=== PATIENT | male | born 1985 | race Caucasian/White ===

== ENCOUNTER 2017-12-01 23:21 | Inpatient (IN) | payer OTHER ==
--- NOTE | 2017-12-02 01:01 | HP ---
COWS - Scale Resting Pulse: 1= ME 81-100 Sweatin= Beads of Sweat on Face Restless Observation: 1= Difficult to Sit Still Pupil Size: 1= Pupils >than Normal Bone or Joint Aches: 4=Acute Joint/Muscle Pain Runny Nose/ Eye Tearin= Runny Nose/Eyes GI Upset > 30mins: 2= Nausea/Diarrhea Tremor Observation: 4= Gross Tremor/Twitching Yawning Observation: 0= None Anxiety or Irritability: 0= None Goose Flesh Skin: 0=Smooth Skin COWS Score: 18 Admission LOCATED WITHIN [facility] Chief Complaint: opioid detox Allergies/Adverse Reactions: Allergies Allergy/AdvReac Type Severity Reaction Status Date / Time No Known Allergies Allergy Verified 12/02/17 01:03 History of Present Illness: Patient is a 31 years old male with a four years history of opioid dependence admitted to detox. He has been to previous detox and reports 11 months period of sobriety. He has history of Hep C and denies suicidal ideation at this time. Exam Limitations: Physical Impairment (left ankle fracture, leg cast in place) - Ebola screening Have you traveled outside of the country in the last 21 days: No (N) Have you had contact with anyone from an Ebola affected area: No Have you been sick,other than usual withdrawal symptoms: No Do you have a fever: No - Review of Systems Constitutional: Diaphoresis, Malaise, Night Sweats, Changes in sleep EENT: reports: No Symptoms Reported Respiratory: reports: No Symptoms reported Cardiac: reports: No Symptoms Reported GI: reports: Poor Appetite, Poor Fluid Intake, Abdominal cramping : reports: No Symptoms Reported Musculoskeletal: reports: Muscle Pain, Muscle Weakness, Other (left ankle fracture) Neuro: reports: Headache, Tingling, Tremors Endocrine: reports: No Symptoms Reported Hematology: reports: No Symptoms Reported Psychiatric: reports: Mood/Affect Appropiate, Orientated x3, Anxious Other Systems: Reviewed and Negative Patient History - Patient Medical History Hx Anemia: No Hx Asthma: No Hx Chronic Obstructive Pulmonary Disease (COPD): No Hx Cancer: No Hx Cardiac Disorders: No Hx Congestive Heart Failure: No Hx Hypertension: No Hx Hypercholesterolemia: No Hx Pacemaker: No HX Cerebrovascular Accident: No Hx Seizures: No Hx Dementia: No Hx Diabetes: No Hx Gastrointestinal Disorders: No Hx Liver Disease: Yes (Hep C) Hx Genitourinary Disorders: No Hx Sexually Transmitted Disorders: No Hx Renal Disease (ESRD): No Hx Human Immunodeficiency Virus (HIV): No (Negative 2016) Hx Hepatitis C: Yes Hx Depression: No Hx Suicide Attempt: No (Denies suicidal ideation) Hx Bipolar Disorder: No Hx Schizophrenia: No - Patient Surgical History Past Surgical History: Yes Hx Neurologic Surgery: No Hx Cataract Extraction: No Hx Cardiac Surgery: No Hx Lung Surgery: No Hx Abdominal Surgery: No Hx Appendectomy: No Hx Cholecystectomy: Yes (2014) Hx Genitourinary Surgery: No Hx Orthopedic Surgery: No Anesthesia Reaction: No - PPD History Previous Implant?: Yes (PPD POSITIVE) Implanted On Prior R Admission?: No PPD to be Administered?: No - Reproductive History Patient is a Female of Child Bearing Age (11 -55 yrs old): No (MALE) - Smoking Cessation Smoking history: Current every day smoker Have you smoked in the past 12 months: Yes Aproximately how many cigarettes per day: 20 Hx Chewing Tobacco Use: No Initiated information on smoking cessation: Yes 'Breaking Loose' booklet given: 12/02/17 - Substance & Tx. History Hx Alcohol Use: No Hx Substance Use: Yes Substance Use Type: Cocaine, Heroin, Opiates Hx Substance Use Treatment: Yes ([facility] 09/2017) - Substances Abused Cocaine Route: Smoking Frequency: 3-6 times per week Amount used: 1 GRAM Age of first use: 15 Date of Last Use: 11/25/17 Heroin Route: Injection Frequency: Daily Amount used: 10 BAGS Age of first use: 28 Date of Last Use: 12/02/17 Family Disease History - Family Disease History Family History: Denies Admission Physical Exam [facility] - Physical General Appearance: Yes: Moderate Distress HEENTM: Yes: EOMI, Normal Voice, ZACH Respiratory: Yes: Lungs Clear, Normal Breath Sounds, No Respiratory Distress Neck: Yes: Supple, Trachea in good position Breast: Yes: Breast Exam Deferred Cardiology: Yes: Regular Rhythm, Regular Rate, S1, S2 Abdominal: Yes: Normal Bowel Sounds, Soft Genitourinary: Yes: Within Normal Limits Back: Yes: Normal Inspection Musculoskeletal: Yes: Muscle Pain, Muscle weakness Extremities: Yes: Tremors, Other Neurological: Yes: Alert, Normal Response Integumentary: Yes: Dry, Diaphoresis, Track Camejo (BILATERAL HANDS) Lymphatic: Yes: Within Normal Limits - Diagnostic (1) Opioid dependence with withdrawal Current Visit: Yes Status: Chronic (2) Cocaine dependence, uncomplicated Current Visit: Yes Status: Chronic (3) Hep C w/o coma, chronic Current Visit: Yes Status: Chronic (4) Nicotine dependence Current Visit: Yes Status: Chronic Cleared for Admission [facility] - Detox or Rehab [facility] Level of Care: Medically Managed Detox Regimen/Protocol: Methadone S Breath Alcohol Content Breath Alcohol Content: 0 Vital Signs - Vital Signs Vital Signs Refused: No Temperature: 97.6 F Temperature Source: Oral Pulse Rate: 91 Respiratory Rate: 17 Blood Pressure: 117/68 BP Location: Left Arm - Height Height: 5 ft 11 in - Weight Weight: 170 lb Weight Measurement Method: Standing Scale Body Mass Index (BMI): 23.7 - Bowel Function Bowel Movement: No Urine Drug Screen - Test Device Lot Number: [id number] Expiration Date: 08/26/19 - Results Urine Drug Screen Results: NADINE-Cocaine, OPI-Opiates, OXY-Oxycodone
[2017-12-02] MEDS ORDERED: MENTHOL/PHENOL 1 EACH UD MM PRN (01:51)
[2017-12-02] MEDS ORDERED: MAGNESIUM CITRATE 300 ML BOTTLE PO PRN (01:51)
[2017-12-02] MEDS ORDERED: LOPERAMIDE HCL 2 MG CAPSULE PO PRN (01:51)
[2017-12-02] MEDS ORDERED: METHADONE HCL 10 MG TABLET (FOR DETOX USE ONLY) PO ONE ×3 (01:51→23:00)
[2017-12-02] MEDS ORDERED: MAG HYDROX/AL HYDROX/SIMETH 30 ML UNIT-DOSE CUP PO PRN (01:51)
[2017-12-02] MEDS ORDERED: MAGNESIUM HYDROX 2400MG/30ML ORAL SUSPENSION 30 ML CUP PO PRN (01:51)
[2017-12-02] MEDS ORDERED: P-EPHED 60MG/TRIPROLIDI 2.5MG TABLET PO PRN (01:51)
[2017-12-02] MEDS ORDERED: NICOTINE POLACRILEX 2 MG GUM BC PRN (01:51)
[2017-12-02] MEDS ORDERED: guaiFENesin/D-METHORPHAN HB 10 ML UNIT-DOSE CUPS PO PRN (01:51)
[2017-12-02 01:58] VITALS: BMI 23.7
[2017-12-02] MEDS: diazePAM 5 MG TABLET PO PRN ×3 (02:24→22:16)
[2017-12-02] MEDS: IBUPROFEN 400 MG TABLET (FP) PO PRN ×2 (02:24→10:58)
[2017-12-02] MEDS: PRENATAL VITAMINS W/ FOLIC ACID TABLET (FP) PO SCH (10:58)
[2017-12-02] MEDS: NICOTINE 14 MG/24 HOURS TOPICAL PATCH TD SCH (10:58)
--- NOTE | 2017-12-02 13:37 | EKG ---
Test Reason : Blood Pressure : / mmHG Vent. Rate : 075 BPM Atrial Rate : 075 BPM P-R Int : 160 ms QRS Dur : 094 ms QT Int : 374 ms P-R-T Axes : 065 072 070 degrees QTc Int : 417 ms NORMAL SINUS RHYTHM NORMAL ECG NO PREVIOUS ECGS AVAILABLE Confirmed by CONNIE LEVIN MD ([id number]) on 12/02/2017 1:37:21 PM Referred By: Confirmed By:CONNIE LEVIN MD
[2017-12-02] MEDS: ACETAMINOPHEN 325 MG TABLET (FP) PO PRN (15:46)
--- NOTE | 2017-12-02 17:28 | PN ---
[facility] Progress Note Note: Patient was admitted early this morning for detox. He is examined this morning, in bed, in no apparent distress. He has c/o pain and nausea. He is s/p left ankle fracture from a fall, cast in place. He has been instructed to use crutches for ambulation, and also to take pain medications as needed. He verbalized understanding.
[2017-12-02] MEDS: THIAMINE HCL 100 MG TABLET (FP) PO SCH (22:16)
[2017-12-03] MEDS: diazePAM 5 MG TABLET PO PRN ×3 (08:37→21:37)
[2017-12-03] MEDS: IBUPROFEN 400 MG TABLET (FP) PO PRN (08:38)
[2017-12-03] MEDS ORDERED: METHADONE HCL 10 MG TABLET (FOR DETOX USE ONLY) PO ONE (10:00)
[2017-12-03] MEDS: PRENATAL VITAMINS W/ FOLIC ACID TABLET (FP) PO SCH (10:09)
[2017-12-03] MEDS: NICOTINE 14 MG/24 HOURS TOPICAL PATCH TD SCH (10:10)
--- NOTE | 2017-12-03 14:33 | PN ---
[facility] COWS - Scale Resting Pulse: 1= [place] 81-100 Sweatin=Flushed/Facial Moisture Restless Observation: 1= Difficult to Sit Still Pupil Size: 0= Normal to Room Light Bone or Joint Aches: 2= Severe Diffuse Aches Runny Nose/ Eye Tearin= Runny Nose/Eyes GI Upset > 30mins: 1= Stomach Cramp Tremor Observation of Outstretched Hands: 2= Slight Tremor Visible Yawning Observation: 1= 1-2x During Session Anxiety or Irritability: 2=Irritable/Anxious Goose Flesh Skin: 0=Smooth Skin COWS Score: 14 BHS Progress Note (SOAP) Subjective: body aches,sweating,interrupted sleep,restless,anxiety Objective: 12/03/17 14:31 Vital Signs - 8 hr 12/03/17 09:47 Temperature 100.5 F H Pulse Rate 94 H Respiratory 16 Rate Blood Pressure 119/72 Assessment: 12/03/17 14:32 Withdrawal sx. Plan: Continue detox
[2017-12-03] MEDS: THIAMINE HCL 100 MG TABLET (FP) PO SCH (21:37)
[2017-12-03] MEDS: ACETAMINOPHEN 325 MG TABLET (FP) PO PRN (23:27)
[2017-12-04] MEDS ORDERED: hydrOXYzine PAMOATE 50 MG CAPSULE (FP) PO ONE (03:36)
[2017-12-04] MEDS: IBUPROFEN 400 MG TABLET (FP) PO PRN (03:37)
[2017-12-04] MEDS: diazePAM 5 MG TABLET PO PRN ×5 (03:37→23:03)
[2017-12-04] MEDS: ACETAMINOPHEN 325 MG TABLET (FP) PO PRN ×2 (07:28→23:50)
[2017-12-04] MEDS ORDERED: METHADONE HCL 5 MG TABLET (FOR DETOX USE ONLY) PO ONE (10:00)
[2017-12-04] MEDS: NICOTINE 14 MG/24 HOURS TOPICAL PATCH TD SCH (10:33)
[2017-12-04] MEDS: PRENATAL VITAMINS W/ FOLIC ACID TABLET (FP) PO SCH (10:33)
--- NOTE | 2017-12-04 10:38 | PN ---
[facility] COWS - Scale Resting Pulse: 1= NM 81-100 Sweatin= Chills/Flushing Restless Observation: 0= Sits Still Pupil Size: 2= Moderately Dilated Bone or Joint Aches: 4=Acute Joint/Muscle Pain Runny Nose/ Eye Tearin= Nasal Congestion GI Upset > 30mins: 0= None Tremor Observation of Outstretched Hands: 1= Tremor [place], Not Seen Yawning Observation: 1= 1-2x During Session Anxiety or Irritability: 2=Irritable/Anxious Goose Flesh Skin: 0=Smooth Skin COWS Score: 13 BHS Progress Note (SOAP) Subjective: ANXIETY,SWEATS/CHILLS,LEG PAIN. PT IS S/P FX LEFT LEG. LEFT LEG ON A WRAP - SOFT CAST. INTERMITTENT SLEEP. Objective: 12/04/17 10:38 Vital Signs Temperature 96.6 F L 12/04/17 10:00 Pulse Rate 91 H 12/04/17 10:00 Respiratory Rate 18 12/04/17 10:00 Blood Pressure 132/64 12/04/17 10:00 O2 Sat by Pulse Oximetry (%) LABS PENDING Assessment: 12/04/17 10:38 WITHDRAWAL SX Plan: CONTINUE DETOX MOTRIN 600 MG PO DIRECTED FLEXERIL DIRECTED.
[2017-12-04] MEDS: CYCLOBENZAPRINE HCL 10 MG TABLET (FP) PO SCH ×2 (14:43→22:27)
[2017-12-04 15:20] LABS: BASO % 0.7 % (0-2.0); EOS % 2.4 % (0-4.5); HEMATOCRIT 43.9 % (35.4-49); HEMOGLOBIN 14.5 GM/dL (11.7-16.9); LYMPH % 28.7 % (8-40); MCH 30.1 pg (25.7-33.7); MCHC 33.1 g/dl (32.0-35.9); MEAN CELL VOLUME 91.1 fl (80-96); MEAN PLT VOLUME 8.8 fl (7.5-11.1); MONO % 11.4 % (3.8-10.2); NEUT % 56.8 % (42.8-82.8); PLATELET COUNT 307 K/MM3 (134-434); RBC 4.82 M/mm3 (4.00-5.60); RDW 15.1 % (11.9-15.9); WHITE BLOOD COUNT 9.3 K/mm3 (4.0-10.0)
[2017-12-04 15:23] LABS: CHLORIDE 105 mmol/L (98-107); POTASSIUM 4.9 mmol/L (3.5-5.1); SODIUM 139 mmol/L (136-145)
[2017-12-04 15:31] LABS: ALK PHOS 90 U/L (45-117); ANION GAP 9 (8-16); BILIRUBIN,TOTAL 0.3 mg/dL (0.2-1.0); BLOOD UREA NITROGEN 9 mg/dL (7-18); CALCIUM 9.6 mg/dL (8.5-10.1); CO2 25 mmol/L (21-32); CREATININE 0.9 mg/dL (0.7-1.3); GLUCOSE,RANDOM 93 mg/dL (74-106); SGOT/AST 15 U/L (15-37); SGPT/ALT 23 U/L (12-78)
--- NOTE | 2017-12-04 16:14 | CONSULT ---
[facility] Psychiatric Consult - Data Date of interview: 12/04/17 Admission source: [facility] Identifying data: First admission to [facility] for this [place]-born male seeking detox treatment on for heroin dependence.Patient is single without children,domiciled (lives with his mother),unemployed and supported by relatives. Substance Abuse History: Confirmed by patient in this interview.See details in current [facility] report : Smoking history: Current every day smoker. Have you smoked in the past 12 months: Yes. Aproximately how many cigarettes per day: 20. Hx Chewing Tobacco Use: No. Initiated information on smoking cessation: Yes. 'Breaking Loose' booklet given: 12/02/17. - Substance & Tx. History. Hx Alcohol Use: No. Hx Substance Use: Yes. Substance Use Type: Cocaine, Heroin, Opiates. Hx Substance Use Treatment: Yes ([facility] 09/2017). - Substances Abused. Cocaine. Route: Smoking. Frequency: 3-6 times per week. Amount used: 1 GRAM. Age of first use: 15. Date of Last Use: 11/25/17. Heroin. Route: Injection. Frequency: Daily. Amount used: 10 BAGS. Age of first use: 28. Date of Last Use: 12/02/17 Medical History: Consistent with hepatitis C,positive PPD (as per [facility] report), past history of cholecystectomy and recent fracture of left ankle (patient uses a pair of crutches for ambulation). Psychiatric History: No reported history of psychiatric hospitalizations.Mr Dixon indicates that he was diagnosed with MDD in the past and treated with wellbutrin + ambien until 2004 (dropped out of psychiatric follow up).Used to be under the care of a private psychiatrist in [facility].It appears that," for a while ",the patient relied on various primary care physicians for medications refills.Has not taken wellbutrin for several years but has remained adherent to zolpidem (chronic insomnia).No current contact with psychiatric OPD care providers.Patient denies history of suicide attempts. 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 Additional Comment: Urine Drug Screen Results: NADINE-Cocaine, OPI-Opiates, OXY- Oxycodone.Noted. Mental Status Exam - Mental Status Exam Alert and Oriented to: Time, Place, Person Cognitive Function: Grossly Intact Patient Appearance: Unkempt, Disheveled Mood: Sad, Withdrawn, Anxious Affect: Mood Congruent, Constricted Patient Behavior: Passive, Fatigued, Appropriate, Cooperative Speech Pattern: Clear, Appropriate Voice Loudness: Normal Thought Process: Intact, Goal Oriented Thought Disorder: Not Present Hallucinations: Denies Suicidal Ideation: Denies Homicidal Ideation: Denies Insight/Judgement: Poor Sleep: Poorly (requests ambien), Difficulty falling asleep Appetite: Good Muscle strength/Tone: Normal (no complaint of rigidity or weakness of extremities) Gait/Station: Other (supine in bed ; pair of crutches at bedside) Psychiatric Findings - Problem List ([place] 1, 2,3) (1) Opioid dependence with withdrawal Current Visit: Yes Status: Acute (2) Cocaine dependence, uncomplicated Current Visit: Yes Status: Acute (3) Nicotine dependence Current Visit: Yes Status: Acute Qualifiers: Nicotine product type: cigarettes Substance use status: in withdrawal Qualified Code(s): F17.213 - Nicotine dependence, cigarettes, with withdrawal (4) Substance induced mood disorder Current Visit: Yes Status: Acute (5) Insomnia Current Visit: Yes Status: Acute - Initial Treatment Plan Initial Treatment Plan: Psychoeducation,empathy and support provided in this session.Sleep hygiene discussed.Detoxification in progress.Ambien 10 mg po hs prn.Will observe the patient without addition of an antidepressant at this time (emphasis on detoxification) since he is contemplating transition to rehabilitation after [facility] [place].Will follow.Medications reconciled : NO home medications.Fall precautions.
[2017-12-04] MEDS: IBUPROFEN 600 MG TABLET (FP) PO PRN (18:43)
[2017-12-04] MEDS: THIAMINE HCL 100 MG TABLET (FP) PO SCH (22:27)
[2017-12-04] MEDS: ZOLPIDEM TARTRATE 10 MG TABLET (PARK CARE ONLY) PO PRN (22:27)
[2017-12-05 05:12] LABS: URINE APPEARANCE CLEAR; URINE BILIRUBIN NEGATIVE (NEGATIVE); URINE BLOOD NEGATIVE (NEGATIVE); URINE COLOR LTYELLOW; URINE GLUCOSE (UA) NEGATIVE (NEGATIVE); URINE KETONE NEGATIVE (NEGATIVE); URINE LEUK ESTERASE NEGATIVE (NEGATIVE); URINE NITRITE NEGATIVE (NEGATIVE); URINE PROTEIN NEGATIVE (NEGATIVE); URINE UROBILINOGEN NEGATIVE mg/dL (0.2-1.0)
[2017-12-05] MEDS: CYCLOBENZAPRINE HCL 10 MG TABLET (FP) PO SCH ×3 (06:25→22:21)
[2017-12-05] MEDS: ACETAMINOPHEN 325 MG TABLET (FP) PO PRN (06:25)
[2017-12-05] MEDS: IBUPROFEN 600 MG TABLET (FP) PO PRN (09:36)
[2017-12-05] MEDS ORDERED: METHADONE HCL 5 MG TABLET (FOR DETOX USE ONLY) PO ONE (10:00)
[2017-12-05] MEDS: PRENATAL VITAMINS W/ FOLIC ACID TABLET (FP) PO SCH (10:36)
[2017-12-05] MEDS: NICOTINE 14 MG/24 HOURS TOPICAL PATCH TD SCH (10:37)
--- NOTE | 2017-12-05 10:44 | PN ---
BHS Progress Note (SOAP) Subjective: ANXIETY,SWEATS,INTERMITTENT SLEEP. Objective: 12/05/17 10:43 Vital Signs Temperature 98.1 F 12/05/17 10:10 Pulse Rate 90 12/05/17 10:10 Respiratory Rate 16 12/05/17 10:10 Blood Pressure 104/68 12/05/17 10:10 O2 Sat by Pulse Oximetry (%) Laboratory Last Values WBC 9.3 K/mm3 (4.0-10.0) 12/04/17 11:03 RBC 4.82 M/mm3 (4.00-5.60) 12/04/17 11:03 Hgb 14.5 GM/dL (11.7-16.9) 12/04/17 11:03 Hct 43.9 % (35.4-49) 12/04/17 11:03 MCV 91.1 fl (80-96) 12/04/17 11:03 MCH 30.1 pg (25.7-33.7) 12/04/17 11:03 MCHC 33.1 g/dl (32.0-35.9) 12/04/17 11:03 RDW 15.1 % (11.9-15.9) 12/04/17 11:03 Plt Count 307 K/MM3 (134-434) 12/04/17 11:03 MPV 8.8 fl (7.5-11.1) 12/04/17 11:03 Neutrophils % 56.8 % (42.8-82.8) 12/04/17 11:03 Lymphocytes % 28.7 % (8-40) 12/04/17 11:03 Monocytes % 11.4 % (3.8-10.2) H 12/04/17 11:03 Eosinophils % 2.4 % (0-4.5) 12/04/17 11:03 Basophils % 0.7 % (0-2.0) 12/04/17 11:03 Sodium 139 mmol/L (136-145) 12/04/17 11:03 Potassium 4.9 mmol/L (3.5-5.1) 12/04/17 11:03 Chloride 105 mmol/L (98-107) 12/04/17 11:03 Carbon Dioxide 25 mmol/L (21-32) 12/04/17 11:03 Anion Gap 9 (8-16) 12/04/17 11:03 BUN 9 mg/dL (7-18) 12/04/17 11:03 Creatinine 0.9 mg/dL (0.7-1.3) 12/04/17 11:03 Creat Clearance w eGFR > 60 (>60) 12/04/17 11:03 Random Glucose 93 mg/dL (74-106) 12/04/17 11:03 Calcium 9.6 mg/dL (8.5-10.1) 12/04/17 11:03 Total Bilirubin 0.3 mg/dL (0.2-1.0) 12/04/17 11:03 AST 15 U/L (15-37) 12/04/17 11:03 ALT 23 U/L (12-78) 12/04/17 11:03 Alkaline Phosphatase 90 U/L (45-117) 12/04/17 11:03 Total Protein 8.0 g/dl (6.4-8.2) 12/04/17 11:03 Albumin 4.0 g/dl (3.4-5.0) 12/04/17 11:03 Urine Color Ltyellow 12/04/17 06:30 Urine Appearance Clear 12/04/17 06:30 Urine pH 6.0 (5.0-8.0) 12/04/17 06:30 Ur Specific [place] 1.011 (1.001-1.035) 12/04/17 06:30 Urine Protein Negative (NEGATIVE) 12/04/17 06:30 Urine Glucose (UA) Negative (NEGATIVE) 12/04/17 06:30 Urine Ketones Negative (NEGATIVE) 12/04/17 06:30 Urine Blood Negative (NEGATIVE) 12/04/17 06:30 Urine Nitrite Negative (NEGATIVE) 12/04/17 06:30 Urine Bilirubin Negative (NEGATIVE) 12/04/17 06:30 Urine Urobilinogen Negative mg/dL (0.2-1.0) 12/04/17 06:30 Ur Leukocyte Esterase Negative (NEGATIVE) 12/04/17 06:30 RPR Titer Nonreactive (NONREACTIVE) 12/04/17 11:03 Assessment: 12/05/17 10:43 WITHDRAWAL SX Plan: CONTINUE DETOX
[2017-12-05] MEDS: THIAMINE HCL 100 MG TABLET (FP) PO SCH (22:21)
[2017-12-05] MEDS: ZOLPIDEM TARTRATE 10 MG TABLET (PARK CARE ONLY) PO PRN (22:21)
[2017-12-06] MEDS: IBUPROFEN 600 MG TABLET (FP) PO PRN ×2 (01:00→09:31)
[2017-12-06] MEDS: ACETAMINOPHEN 325 MG TABLET (FP) PO PRN (06:05)
[2017-12-06] MEDS: CYCLOBENZAPRINE HCL 10 MG TABLET (FP) PO SCH ×3 (06:05→22:28)
[2017-12-06] MEDS ORDERED: METHADONE HCL 10 MG TABLET (FOR DETOX USE ONLY) PO ONE (10:00)
[2017-12-06] MEDS: NICOTINE 14 MG/24 HOURS TOPICAL PATCH TD SCH (10:30)
[2017-12-06] MEDS: PRENATAL VITAMINS W/ FOLIC ACID TABLET (FP) PO SCH (10:31)
--- NOTE | 2017-12-06 12:36 | PN ---
BHS Progress Note (SOAP) Subjective: BODY ACHES,SWEATS, ANXIETY,INTERMITTENT SLEEP. Objective: 12/06/17 12:35 Vital Signs Temperature 97.8 F 12/06/17 10:09 Pulse Rate 83 12/06/17 10:09 Respiratory Rate 16 12/06/17 10:09 Blood Pressure 112/69 12/06/17 10:09 O2 Sat by Pulse Oximetry (%) Laboratory Last Values WBC 9.3 K/mm3 (4.0-10.0) 12/04/17 11:03 RBC 4.82 M/mm3 (4.00-5.60) 12/04/17 11:03 Hgb 14.5 GM/dL (11.7-16.9) 12/04/17 11:03 Hct 43.9 % (35.4-49) 12/04/17 11:03 MCV 91.1 fl (80-96) 12/04/17 11:03 MCH 30.1 pg (25.7-33.7) 12/04/17 11:03 MCHC 33.1 g/dl (32.0-35.9) 12/04/17 11:03 RDW 15.1 % (11.9-15.9) 12/04/17 11:03 Plt Count 307 K/MM3 (134-434) 12/04/17 11:03 MPV 8.8 fl (7.5-11.1) 12/04/17 11:03 Neutrophils % 56.8 % (42.8-82.8) 12/04/17 11:03 Lymphocytes % 28.7 % (8-40) 12/04/17 11:03 Monocytes % 11.4 % (3.8-10.2) H 12/04/17 11:03 Eosinophils % 2.4 % (0-4.5) 12/04/17 11:03 Basophils % 0.7 % (0-2.0) 12/04/17 11:03 Sodium 139 mmol/L (136-145) 12/04/17 11:03 Potassium 4.9 mmol/L (3.5-5.1) 12/04/17 11:03 Chloride 105 mmol/L (98-107) 12/04/17 11:03 Carbon Dioxide 25 mmol/L (21-32) 12/04/17 11:03 Anion Gap 9 (8-16) 12/04/17 11:03 BUN 9 mg/dL (7-18) 12/04/17 11:03 Creatinine 0.9 mg/dL (0.7-1.3) 12/04/17 11:03 Creat Clearance w eGFR > 60 (>60) 12/04/17 11:03 Random Glucose 93 mg/dL (74-106) 12/04/17 11:03 Calcium 9.6 mg/dL (8.5-10.1) 12/04/17 11:03 Total Bilirubin 0.3 mg/dL (0.2-1.0) 12/04/17 11:03 AST 15 U/L (15-37) 12/04/17 11:03 ALT 23 U/L (12-78) 12/04/17 11:03 Alkaline Phosphatase 90 U/L (45-117) 12/04/17 11:03 Total Protein 8.0 g/dl (6.4-8.2) 12/04/17 11:03 Albumin 4.0 g/dl (3.4-5.0) 12/04/17 11:03 Urine Color Ltyellow 12/04/17 06:30 Urine Appearance Clear 12/04/17 06:30 Urine pH 6.0 (5.0-8.0) 12/04/17 06:30 Ur Specific [place] 1.011 (1.001-1.035) 12/04/17 06:30 Urine Protein Negative (NEGATIVE) 12/04/17 06:30 Urine Glucose (UA) Negative (NEGATIVE) 12/04/17 06:30 Urine Ketones Negative (NEGATIVE) 12/04/17 06:30 Urine Blood Negative (NEGATIVE) 12/04/17 06:30 Urine Nitrite Negative (NEGATIVE) 12/04/17 06:30 Urine Bilirubin Negative (NEGATIVE) 12/04/17 06:30 Urine Urobilinogen Negative mg/dL (0.2-1.0) 12/04/17 06:30 Ur Leukocyte Esterase Negative (NEGATIVE) 12/04/17 06:30 RPR Titer Nonreactive (NONREACTIVE) 12/04/17 11:03 Assessment: 12/06/17 12:36 WITHDRAWAL SX Plan: CONTINUE DETOX
[2017-12-06] MEDS: THIAMINE HCL 100 MG TABLET (FP) PO SCH (22:28)
[2017-12-06] MEDS: ZOLPIDEM TARTRATE 10 MG TABLET (PARK CARE ONLY) PO PRN (22:28)
[2017-12-07] MEDS: IBUPROFEN 600 MG TABLET (FP) PO PRN (03:41)
[2017-12-07] MEDS ORDERED: METHADONE HCL 5 MG TABLET (FOR DETOX USE ONLY) PO ONE ×2 (06:00→08:52)
[2017-12-07] MEDS: CYCLOBENZAPRINE HCL 10 MG TABLET (FP) PO SCH (06:48)
[2017-12-07 09:29] VITALS: BP 104/70; PULSE 88; TEMP 96.3
--- NOTE | 2017-12-07 11:20 | DS ---
[facility] Detox Discharge Summary Admission Date: 12/02/17 Discharge Date: 12/07/17 - History Present History: Cocaine Dependence, Opioid Dependence Additional Comments: DETOX COMPLETED.ALERT O X 3. NAD. PT IS GOING TO FOLLOW UP WITH ORTHOPEDIC APPOINTMENT TODAY FOR HIS LEFT LEG. PT INSTRUCTED BY COUNSELOR CARMITA TO CALL FOR AFTERCARE BED AFTER MEDICAL NEEDS/ORTHO IS CLEARED AND HE IS READY FOR REHAB. Pertinent Past History: LEFT ANKLE FRACTURE-USE OF CRUTCHES HEP C - Physical Exam Results Vital Signs: Vital Signs Temperature 96.3 F L 12/07/17 09:27 Pulse Rate 88 12/07/17 09:27 Respiratory Rate 18 12/07/17 09:27 Blood Pressure 104/70 12/07/17 09:27 O2 Sat by Pulse Oximetry (%) Pertinent Admission Physical Exam Findings: WITHDRAWAL SX Laboratory Last Values WBC 9.3 K/mm3 (4.0-10.0) 12/04/17 11:03 RBC 4.82 M/mm3 (4.00-5.60) 12/04/17 11:03 Hgb 14.5 GM/dL (11.7-16.9) 12/04/17 11:03 Hct 43.9 % (35.4-49) 12/04/17 11:03 MCV 91.1 fl (80-96) 12/04/17 11:03 MCH 30.1 pg (25.7-33.7) 12/04/17 11:03 MCHC 33.1 g/dl (32.0-35.9) 12/04/17 11:03 RDW 15.1 % (11.9-15.9) 12/04/17 11:03 Plt Count 307 K/MM3 (134-434) 12/04/17 11:03 MPV 8.8 fl (7.5-11.1) 12/04/17 11:03 Neutrophils % 56.8 % (42.8-82.8) 12/04/17 11:03 Lymphocytes % 28.7 % (8-40) 12/04/17 11:03 Monocytes % 11.4 % (3.8-10.2) H 12/04/17 11:03 Eosinophils % 2.4 % (0-4.5) 12/04/17 11:03 Basophils % 0.7 % (0-2.0) 12/04/17 11:03 Sodium 139 mmol/L (136-145) 12/04/17 11:03 Potassium 4.9 mmol/L (3.5-5.1) 12/04/17 11:03 Chloride 105 mmol/L (98-107) 12/04/17 11:03 Carbon Dioxide 25 mmol/L (21-32) 12/04/17 11:03 Anion Gap 9 (8-16) 12/04/17 11:03 BUN 9 mg/dL (7-18) 12/04/17 11:03 Creatinine 0.9 mg/dL (0.7-1.3) 12/04/17 11:03 Creat Clearance w eGFR > 60 (>60) 12/04/17 11:03 Random Glucose 93 mg/dL (74-106) 12/04/17 11:03 Calcium 9.6 mg/dL (8.5-10.1) 12/04/17 11:03 Total Bilirubin 0.3 mg/dL (0.2-1.0) 12/04/17 11:03 AST 15 U/L (15-37) 12/04/17 11:03 ALT 23 U/L (12-78) 12/04/17 11:03 Alkaline Phosphatase 90 U/L (45-117) 12/04/17 11:03 Total Protein 8.0 g/dl (6.4-8.2) 12/04/17 11:03 Albumin 4.0 g/dl (3.4-5.0) 12/04/17 11:03 Urine Color Ltyellow 12/04/17 06:30 Urine Appearance Clear 12/04/17 06:30 Urine pH 6.0 (5.0-8.0) 12/04/17 06:30 Ur Specific [place] 1.011 (1.001-1.035) 12/04/17 06:30 Urine Protein Negative (NEGATIVE) 12/04/17 06:30 Urine Glucose (UA) Negative (NEGATIVE) 12/04/17 06:30 Urine Ketones Negative (NEGATIVE) 12/04/17 06:30 Urine Blood Negative (NEGATIVE) 12/04/17 06:30 Urine Nitrite Negative (NEGATIVE) 12/04/17 06:30 Urine Bilirubin Negative (NEGATIVE) 12/04/17 06:30 Urine Urobilinogen Negative mg/dL (0.2-1.0) 12/04/17 06:30 Ur Leukocyte Esterase Negative (NEGATIVE) 12/04/17 06:30 RPR Titer Nonreactive (NONREACTIVE) 12/04/17 11:03 - Treatment Hospital Course: Detox Protocol Followed, Detoxed Safely, Responded well, Discharged Condition Good - Medication Discharge Medications: Ambulatory Orders NK [No Known Home Medication] 12/02/17 - Diagnosis (1) Cocaine dependence, uncomplicated Current Visit: Yes Status: Acute (2) Hep C w/o coma, chronic Current Visit: Yes Status: Chronic (3) Nicotine dependence Current Visit: Yes Status: Acute Qualifiers: Nicotine product type: cigarettes Substance use status: in withdrawal Qualified Code(s): F17.213 - Nicotine dependence, cigarettes, with withdrawal (4) Opioid dependence with withdrawal Current Visit: Yes Status: Acute (5) History of fracture of left ankle Current Visit: Yes Status: Acute (6) Uses crutches Current Visit: Yes Status: Acute - AMA Did Patient Leave Against Medical Advice: No
== END 2017-12-07 10:03 | disposition home or self-care (01) | DRG 773 ==
LOC: YASAS 23:21 → Y3N 12-02 01:06
PROVIDERS: ADMIT Internal Medicine; ATTEND Internal Medicine
PROC: HZ2ZZZZ Detoxification Services for Substance Abuse Treatment (ICD-10-PCS; principal; 2017-12-02)
DX: F11.23 Opioid dependence with withdrawal (principal); F14.20 Cocaine dependence, uncomplicated; F17.213 Nicotine dependence, cigarettes, with withdrawal; F19.24 Other psychoactive substance dependence with psychoactive substance-induced mood disorder; B18.2 Chronic viral hepatitis C; G47.00 Insomnia, unspecified; Z87.81 Personal history of (healed) traumatic fracture; Z99.89 Dependence on other enabling machines and devices
CPT/HCPCS: 36415; 71046-TC; 80053; 81003; 85025; 86593; 93005; 93010

== ENCOUNTER 2017-12-23 11:34 | Inpatient (IN) | payer OTHER ==
[2017-12-23 12:21] VITALS: BMI 24.8
--- NOTE | 2017-12-23 12:52 | HP ---
COWS - Scale Resting Pulse: 1= [place] 81-100 Sweatin= Chills/Flushing Restless Observation: 1= Difficult to Sit Still Pupil Size: 0= Normal to Room Light Bone or Joint Aches: 1= Mild Discomfort Runny Nose/ Eye Tearin= Runny Nose/Eyes GI Upset > 30mins: 2= Nausea/Diarrhea Tremor Observation: 1= Tremor [place], Not Seen Yawning Observation: 1= 1-2x During Session Anxiety or Irritability: 1=Feels Anxious/Irritable Goose Flesh Skin: 0=Smooth Skin COWS Score: 11 Admission ROS S - HPI Chief Complaint: I need help, I need to be here Allergies/Adverse Reactions: Allergies Allergy/AdvReac Type Severity Reaction Status Date / Time No Known Allergies Allergy Verified 12/23/17 12:21 History of Present Illness: 31 yo gentleman here for opiate detox. Patient was here 12/02 - 12/07/17 for detox. Then went to [facility] to f/u with regard to ankle fracture. He did not have surgical repair of the ankle until 12/21/17 - he relapsed shortly after leaving here on 12/07/17. He wishes rehab after detox. He showed me discharge papers from [facility] indicating he is to be nonweight bearing and to come in for f/u at [facility] on 12/27/17. He is using crutches. Was given percocet 5/325 for pain from [facility] - noted oxycodone in urine tox. He is aware he cannot be given percocet here. Exam Limitations: Clinical Condition - Ebola screening Have you traveled outside of the country in the last 21 days: No Have you had contact with anyone from an Ebola affected area: No Have you been sick,other than usual withdrawal symptoms: No Do you have a fever: No - Review of Systems Constitutional: Chills, Loss of Appetite, Night Sweats, Changes in sleep, Weakness EENT: reports: Nose Congestion Respiratory: reports: No Symptoms reported Cardiac: reports: No Symptoms Reported GI: reports: Nausea, Poor Appetite, Indigestion : reports: No Symptoms Reported Musculoskeletal: reports: Back Pain, Muscle Pain Integumentary: reports: Flushing Neuro: reports: Headache Endocrine: reports: No Symptoms Reported Hematology: reports: No Symptoms Reported Psychiatric: reports: Judgement Intact, Mood/Affect Appropiate, Orientated x3, Anxious Other Systems: Reviewed and Negative Patient History - Patient Medical History Hx Anemia: No Hx Asthma: No Hx Chronic Obstructive Pulmonary Disease (COPD): No Hx Cancer: No Hx Cardiac Disorders: No Hx Congestive Heart Failure: No Hx Hypertension: No Hx Hypercholesterolemia: No Hx Pacemaker: No HX Cerebrovascular Accident: No Hx Seizures: No Hx Dementia: No Hx Diabetes: No Hx Gastrointestinal Disorders: No Hx Liver Disease: No Hx Genitourinary Disorders: No Hx Sexually Transmitted Disorders: No Hx Renal Disease (ESRD): No Hx Human Immunodeficiency Virus (HIV): No (Negative 2016) Hx Hepatitis C: Yes (no treatement yet) Hx Depression: Yes (when young, declines psych) Hx Suicide Attempt: No Hx Bipolar Disorder: No Hx Schizophrenia: No - Patient Surgical History Past Surgical History: Yes Hx Neurologic Surgery: No Hx Cataract Extraction: No Hx Cardiac Surgery: No Hx Lung Surgery: No Hx Abdominal Surgery: No Hx Appendectomy: No Hx Cholecystectomy: Yes (2014) Hx Genitourinary Surgery: No Hx Orthopedic Surgery: Yes (left ankle ORIF 12/21/17) Anesthesia Reaction: No - PPD History Previous Implant?: Yes Documented Results: Positive w/o proof (BCG vax) Date: 12/03/17 (cxr normal) - Reproductive History Patient is a Female of Child Bearing Age (11 -55 yrs old): No (male) - Smoking Cessation Smoking history: Current every day smoker Have you smoked in the past 12 months: Yes Aproximately how many cigarettes per day: 20 Hx Chewing Tobacco Use: No Initiated information on smoking cessation: Yes 'Breaking Loose' booklet given: 12/23/17 (give on floor) - Substance & Tx. History Hx Alcohol Use: No Hx Substance Use: Yes Substance Use Type: Cocaine, Heroin Hx Substance Use Treatment: Yes - Substances Abused Heroin Route: Injection Frequency: Daily Amount used: 15 BAGS Age of first use: 28 Date of Last Use: 12/22/17 cocaine Route: Inhalation Frequency: 1-2 times per week Amount used: $50 Age of first use: 28 Date of Last Use: 12/21/17 Marijuana/Hashish Route: Smoking Frequency: 1-2 times per week Amount used: 1 joint Age of first use: 17 Date of Last Use: 12/20/17 Family Disease History - Family Disease History Family Disease History: Other: Father (living, healthy), Mother (living, healthy ), Brother (one, living, healthy) Admission Physical Exam [facility] - Vital Signs Vital Signs: Vital Signs - 24 hr 12/23/17 12:16 Temperature 97.8 F Pulse Rate 86 Respiratory 18 Rate Blood Pressure 121/78 - Physical General Appearance: Yes: Nourished, Appropriately Dressed, Moderate Distress, Sweating, Anxious HEENTM: Yes: Hearing grossly Normal, Normocephalic, Normal Voice Respiratory: Yes: Normal Breath Sounds, No Respiratory Distress Neck: Yes: No masses,lesions,Nodules Breast: Yes: Breast Exam Deferred Cardiology: Yes: Regular Rhythm, Regular Rate Abdominal: Yes: Flat Genitourinary: Yes: Within Normal Limits Back: Yes: Normal Inspection Musculoskeletal: Yes: Other (crutches to walk - non weight bearing) Extremities: Yes: Other (left below knee cast/brace/acewrap - toes pink, mobile , slight swelling) Neurological: Yes: Fully Oriented, Alert, Motor Strength 5/5, Normal Mood/Affect , Normal Response Integumentary: Yes: Normal Color, Warm, Track [place] (dorsal aspects of both hands - no abscess noted) Lymphatic: Yes: Within Normal Limits - Diagnostic (1) Opioid dependence with withdrawal Current Visit: Yes Status: Acute (2) Cocaine dependence, uncomplicated Current Visit: Yes Status: Chronic (3) History of fracture of left ankle Current Visit: Yes Status: Acute Comment: in cast - followed by [facility] - ORIF 12/21/17 (4) Nicotine dependence Current Visit: Yes Status: Acute Qualifiers: Nicotine product type: cigarettes Substance use status: in withdrawal Qualified Code(s): F17.213 - Nicotine dependence, cigarettes, with withdrawal (5) Uses crutches Current Visit: Yes Status: Acute (6) Hep C w/o coma, chronic Current Visit: Yes Status: Chronic Cleared for Admission [facility] - Detox or Rehab [facility] Level of Care: Medically Managed Detox Regimen/Protocol: Methadone [facility] Breath Alcohol Content Breath Alcohol Content: 0 Urine Drug Screen - Results Drug Screen Negative: No Urine Drug Screen Results: THC-Marijuana, NADINE-Cocaine, OPI-Opiates, OXY- Oxycodone
[2017-12-23] MEDS ORDERED: IBUPROFEN 400 MG TABLET (FP) PO PRN (12:57)
[2017-12-23] MEDS ORDERED: P-EPHED 60MG/TRIPROLIDI 2.5MG TABLET PO PRN (12:57)
[2017-12-23] MEDS ORDERED: MAGNESIUM CITRATE 300 ML BOTTLE PO PRN (12:57)
[2017-12-23] MEDS ORDERED: guaiFENesin/D-METHORPHAN HB 10 ML UNIT-DOSE CUPS PO PRN (12:57)
[2017-12-23] MEDS ORDERED: MAG HYDROX/AL HYDROX/SIMETH 30 ML UNIT-DOSE CUP PO PRN (12:57)
[2017-12-23] MEDS ORDERED: MENTHOL/PHENOL 1 EACH UD MM PRN (12:57)
[2017-12-23] MEDS ORDERED: MAGNESIUM HYDROX 2400MG/30ML ORAL SUSPENSION 30 ML CUP PO PRN (12:57)
[2017-12-23] MEDS ORDERED: LOPERAMIDE HCL 2 MG CAPSULE PO PRN (12:57)
[2017-12-23] MEDS ORDERED: METHADONE HCL 10 MG TABLET (FOR DETOX USE ONLY) PO ONE ×2 (14:30→23:00)
[2017-12-23] MEDS: diazePAM 5 MG TABLET PO PRN ×2 (14:35→20:07)
[2017-12-23] MEDS: NICOTINE 14 MG/24 HOURS TOPICAL PATCH TD SCH (14:36)
[2017-12-23] MEDS: ACETAMINOPHEN 325 MG TABLET (FP) PO PRN (14:37)
[2017-12-23 17:27] LABS: URINE APPEARANCE CLEAR; URINE BILIRUBIN NEGATIVE (NEGATIVE); URINE BLOOD NEGATIVE (NEGATIVE); URINE COLOR STRAW; URINE GLUCOSE (UA) NEGATIVE (NEGATIVE); URINE KETONE NEGATIVE (NEGATIVE); URINE LEUK ESTERASE NEGATIVE (NEGATIVE); URINE NITRITE NEGATIVE (NEGATIVE); URINE PROTEIN NEGATIVE (NEGATIVE); URINE UROBILINOGEN NEGATIVE mg/dL (0.2-1.0)
[2017-12-23] MEDS: CALCIUM CARBONATE 650 MG TABLET PO SCH ×2 (19:26→22:09)
[2017-12-23] MEDS: hydrOXYzine PAMOATE 50 MG CAPSULE (FP) PO PRN (22:09)
[2017-12-23] MEDS: THIAMINE HCL 100 MG TABLET (FP) PO SCH (22:09)
[2017-12-24] MEDS ORDERED: ERGOCALCIFEROL (VITAMIN D2) 50,000 UNIT CAPSULE (FP) PO SCH (10:00)
[2017-12-24] MEDS ORDERED: METHADONE HCL 10 MG TABLET (FOR DETOX USE ONLY) PO ONE (10:00)
[2017-12-24] MEDS: CALCIUM CARBONATE 650 MG TABLET PO SCH ×2 (10:32→22:19)
[2017-12-24] MEDS: PRENATAL VITAMINS W/ FOLIC ACID TABLET (FP) PO SCH (10:32)
[2017-12-24] MEDS: diazePAM 5 MG TABLET PO PRN ×3 (10:33→22:20)
[2017-12-24] MEDS: NICOTINE 14 MG/24 HOURS TOPICAL PATCH TD SCH (10:36)
[2017-12-24] MEDS ORDERED: METHOCARBAMOL 500 MG TABLET PO ONE (13:18)
--- NOTE | 2017-12-24 13:22 | PN ---
BHS COWS - Scale Resting Pulse: 1= [place] 81-100 Sweatin= Chills/Flushing Restless Observation: 0= Sits Still Pupil Size: 0= Normal to Room Light Bone or Joint Aches: 1= Mild Discomfort Runny Nose/ Eye Tearin= Nasal Congestion GI Upset > 30mins: 1= Stomach Cramp Tremor Observation of Outstretched Hands: 2= Slight Tremor Visible Yawning Observation: 0= None Anxiety or Irritability: 1=Feels Anxious/Irritable Goose Flesh Skin: 0=Smooth Skin COWS Score: 8 BHS Progress Note (SOAP) Subjective: joint aches irritable anxiety restlessness Objective: 12/24/17 13:24 Vital Signs Temperature 98.4 F 12/24/17 10:00 Pulse Rate 82 12/24/17 10:00 Respiratory Rate 18 12/24/17 10:00 Blood Pressure 116/64 12/24/17 10:00 O2 Sat by Pulse Oximetry (%) Laboratory Last Values Urine Color Straw 12/23/17 15:01 Urine Appearance Clear 12/23/17 15:01 Urine pH 5.0 (5.0-8.0) 12/23/17 15:01 Ur Specific [place] 1.015 (1.001-1.035) 12/23/17 15:01 Urine Protein Negative (NEGATIVE) 12/23/17 15:01 Urine Glucose (UA) Negative (NEGATIVE) 12/23/17 15:01 Urine Ketones Negative (NEGATIVE) 12/23/17 15:01 Urine Blood Negative (NEGATIVE) 12/23/17 15:01 Urine Nitrite Negative (NEGATIVE) 12/23/17 15:01 Urine Bilirubin Negative (NEGATIVE) 12/23/17 15:01 Urine Urobilinogen Negative mg/dL (0.2-1.0) 12/23/17 15:01 Ur Leukocyte Esterase Negative (NEGATIVE) 12/23/17 15:01 lab noted Assessment: 12/24/17 13:24 withdrawal sx fracture ankle elevation, ambulate with wheelchair / crutches / non weight bearing Plan: continue detox follow up with orthopedic 12/27/17
[2017-12-24] MEDS: RANITIDINE HCL 150 MG TABLET (FP) PO SCH ×2 (13:58→22:20)
[2017-12-24] MEDS: ACETAMINOPHEN 325 MG TABLET (FP) PO PRN (16:52)
[2017-12-24] MEDS: hydrOXYzine PAMOATE 50 MG CAPSULE (FP) PO PRN (20:19)
[2017-12-24] MEDS: THIAMINE HCL 100 MG TABLET (FP) PO SCH (22:19)
[2017-12-25] MEDS: diazePAM 5 MG TABLET PO PRN ×3 (08:12→19:09)
[2017-12-25] MEDS ORDERED: METHADONE HCL 5 MG TABLET (FOR DETOX USE ONLY) PO ONE (10:00)
[2017-12-25 10:12] LABS: HEMATOCRIT 41.5 % (35.4-49); HEMOGLOBIN 13.8 GM/dL (11.7-16.9); MCH 29.6 pg (25.7-33.7); MCHC 33.2 g/dl (32.0-35.9); MEAN CELL VOLUME 89.2 fl (80-96); MEAN PLT VOLUME 7.7 fl (7.5-11.1); PLATELET COUNT 345 K/MM3 (134-434); RBC 4.65 M/mm3 (4.00-5.60); WHITE BLOOD COUNT 9.8 K/mm3 (4.0-10.0)
--- NOTE | 2017-12-25 10:29 | PN ---
BHS COWS - Scale Resting Pulse: 2= [place] 101-120 Sweatin=Flushed/Facial Moisture Restless Observation: 0= Sits Still Pupil Size: 0= Normal to Room Light Bone or Joint Aches: 1= Mild Discomfort Runny Nose/ Eye Tearin= None GI Upset > 30mins: 0= None Tremor Observation of Outstretched Hands: 1= Tremor [place], Not Seen Yawning Observation: 0= None Anxiety or Irritability: 0= None Goose Flesh Skin: 0=Smooth Skin COWS Score: 6 BHS Progress Note (SOAP) Subjective: bone aches sweat irritable Objective: 12/25/17 10:30 Vital Signs Temperature 97.6 F 12/25/17 06:17 Pulse Rate 63 12/25/17 06:17 Respiratory Rate 16 12/25/17 06:17 Blood Pressure 90/53 12/25/17 06:17 O2 Sat by Pulse Oximetry (%) Laboratory Last Values WBC 9.8 K/mm3 (4.0-10.0) 12/25/17 07:30 RBC 4.65 M/mm3 (4.00-5.60) 12/25/17 07:30 Hgb 13.8 GM/dL (11.7-16.9) 12/25/17 07:30 Hct 41.5 % (35.4-49) 12/25/17 07:30 MCV 89.2 fl (80-96) 12/25/17 07:30 MCH 29.6 pg (25.7-33.7) 12/25/17 07:30 MCHC 33.2 g/dl (32.0-35.9) 12/25/17 07:30 RDW 14.0 % (11.9-15.9) 12/25/17 07:30 Plt Count 345 K/MM3 (134-434) 12/25/17 07:30 MPV 7.7 fl (7.5-11.1) D 12/25/17 07:30 Urine Color Straw 12/23/17 15:01 Urine Appearance Clear 12/23/17 15:01 Urine pH 5.0 (5.0-8.0) 12/23/17 15:01 Ur Specific [place] 1.015 (1.001-1.035) 12/23/17 15:01 Urine Protein Negative (NEGATIVE) 12/23/17 15:01 Urine Glucose (UA) Negative (NEGATIVE) 12/23/17 15:01 Urine Ketones Negative (NEGATIVE) 12/23/17 15:01 Urine Blood Negative (NEGATIVE) 12/23/17 15:01 Urine Nitrite Negative (NEGATIVE) 12/23/17 15:01 Urine Bilirubin Negative (NEGATIVE) 12/23/17 15:01 Urine Urobilinogen Negative mg/dL (0.2-1.0) 12/23/17 15:01 Ur Leukocyte Esterase Negative (NEGATIVE) 12/23/17 15:01 lab noted Assessment: 12/25/17 10:31 withdrawal sx Plan: continue detox
[2017-12-25] MEDS: ACETAMINOPHEN 325 MG TABLET (FP) PO PRN (10:34)
[2017-12-25] MEDS: PRENATAL VITAMINS W/ FOLIC ACID TABLET (FP) PO SCH (10:34)
[2017-12-25] MEDS: CALCIUM CARBONATE 650 MG TABLET PO SCH ×2 (10:34→22:03)
[2017-12-25] MEDS: RANITIDINE HCL 150 MG TABLET (FP) PO SCH ×2 (10:34→22:03)
[2017-12-25] MEDS: NICOTINE 14 MG/24 HOURS TOPICAL PATCH TD SCH (10:35)
[2017-12-25 10:41] LABS: CHLORIDE 103 mmol/L (98-107); POTASSIUM 4.4 mmol/L (3.5-5.1); SODIUM 138 mmol/L (136-145)
[2017-12-25 10:52] LABS: ALBUMIN 3.7 g/dl (3.4-5.0); ALK PHOS 91 U/L (45-117); ANION GAP 7 (8-16); BILIRUBIN,TOTAL 0.3 mg/dL (0.2-1.0); BLOOD UREA NITROGEN 16 mg/dL (7-18); CALCIUM 9.8 mg/dL (8.5-10.1); CO2 28 mmol/L (21-32); CREATININE 0.8 mg/dL (0.7-1.3); GLUCOSE,RANDOM 94 mg/dL (74-106); SGOT/AST 11 U/L (15-37); SGPT/ALT 28 U/L (12-78); TOT PROT 7.8 g/dl (6.4-8.2)
--- NOTE | 2017-12-25 13:10 | EKG ---
Test Reason : Blood Pressure : / mmHG Vent. Rate : 069 BPM Atrial Rate : 069 BPM P-R Int : 180 ms QRS Dur : 086 ms QT Int : 388 ms P-R-T Axes : 059 067 062 degrees QTc Int : 415 ms NORMAL SINUS RHYTHM NORMAL ECG WHEN COMPARED WITH ECG OF 02-DEC-2017 03:29, NO SIGNIFICANT CHANGE WAS FOUND Confirmed by KALE GÓMEZ MD ([id number]) on 12/25/2017 1:10:07 PM Referred By: Joseph Khan Confirmed By:KALE GÓMEZ MD
[2017-12-25] MEDS ORDERED: PATIENT'S OWN MEDICATION (NON-FORMULARY) (Zolpidem Tartrate [Ambien] 10 MG) PO SCH (22:00)
[2017-12-25] MEDS: ZOLPIDEM TARTRATE 10 MG TABLET (PARK CARE ONLY) PO PRN (22:03)
[2017-12-25] MEDS: THIAMINE HCL 100 MG TABLET (FP) PO SCH (22:03)
[2017-12-26] MEDS: diazePAM 5 MG TABLET PO PRN ×2 (04:55→08:55)
--- NOTE | 2017-12-26 09:34 | PN ---
BHS Progress Note (SOAP) Subjective: nausea, sweats, interrupted sleep, anxiety, tremors Objective: 12/26/17 09:33 Vital Signs - 24 hr 12/25/17 12/25/17 12/25/17 10:58 15:25 17:51 Temperature 98.2 F 98.2 F 98.6 F Pulse Rate 106 H 93 H 78 Respiratory 18 18 16 Rate Blood Pressure 124/71 102/56 97/57 12/25/17 12/26/17 12/26/17 21:51 03:30 06:25 Temperature 98.1 F 96.3 F L Pulse Rate 105 H 81 Respiratory 16 18 18 Rate Blood Pressure 96/57 104/61 Laboratory Tests 12/23/17 12/25/17 12/25/17 15:01 07:30 07:30 WBC 9.8 RBC 4.65 Hgb 13.8 Hct 41.5 MCV 89.2 MCH 29.6 MCHC 33.2 RDW 14.0 Plt Count 345 MPV 7.7 D Sodium 138 Potassium 4.4 Chloride 103 Carbon Dioxide 28 Anion Gap 7 L BUN 16 D Creatinine 0.8 Creat Clearance w eGFR > 60 Random Glucose 94 Calcium 9.8 Total Bilirubin 0.3 AST 11 L D ALT 28 D Alkaline Phosphatase 91 Total Protein 7.8 Albumin 3.7 Urine Color Straw Urine Appearance Clear Urine pH 5.0 Ur Specific [place] 1.015 Urine Protein Negative Urine Glucose (UA) Negative Urine Ketones Negative Urine Blood Negative Urine Nitrite Negative Urine Bilirubin Negative Urine Urobilinogen Negative Ur Leukocyte Esterase Negative RPR Titer 12/25/17 07:30 WBC RBC Hgb Hct MCV MCH MCHC RDW Plt Count MPV Sodium Potassium Chloride Carbon Dioxide Anion Gap BUN Creatinine Creat Clearance w eGFR Random Glucose Calcium Total Bilirubin AST ALT Alkaline Phosphatase Total Protein Albumin Urine Color Urine Appearance Urine pH Ur Specific [place] Urine Protein Urine Glucose (UA) Urine Ketones Urine Blood Urine Nitrite Urine Bilirubin Urine Urobilinogen Ur Leukocyte Esterase RPR Titer Nonreactive Assessment: 12/26/17 09:34 withdrawal sx, cotn detox, fluids, encourage ambulation
[2017-12-26] MEDS ORDERED: METHADONE HCL 5 MG TABLET (FOR DETOX USE ONLY) PO ONE (10:00)
[2017-12-26] MEDS: RANITIDINE HCL 150 MG TABLET (FP) PO SCH ×2 (10:31→22:03)
[2017-12-26] MEDS: NICOTINE 14 MG/24 HOURS TOPICAL PATCH TD SCH (10:31)
[2017-12-26] MEDS: PRENATAL VITAMINS W/ FOLIC ACID TABLET (FP) PO SCH (10:31)
[2017-12-26] MEDS: CALCIUM CARBONATE 650 MG TABLET PO SCH ×2 (10:31→22:02)
--- NOTE | 2017-12-26 10:49 | CONSULT ---
[facility] Psychiatric Consult - Data Date of interview: 12/26/17 Admission source: [facility] Identifying data: Pt. is a 31 year old male, single, w/o kids, and currently unemployed. This is one of multiple admissions for patient. Pt. admitted to for heroin, cocaine, and marijuana dependence. Substance Abuse History: Following information confirmed with Mr. Dixon: Smoking Cessation. Smoking history: Current every day smoker. Have you smoked in the past 12 months: Yes. Aproximately how many cigarettes per day: 20. Hx Chewing Tobacco Use: No. Initiated information on smoking cessation: Yes. ' Breaking Loose' booklet given: 12/23/17 (give on floor). - Substance & Tx. History. Hx Alcohol Use: No. Hx Substance Use: Yes. Substance Use Type: Cocaine, Heroin. Hx Substance Use Treatment: Yes. - Substances Abused. Heroin. Route: Injection. Frequency: Daily. Amount used: 15 BAGS. Age of first use: 28. Date of Last Use: 12/22/17. cocaine. Route: Inhalation. Frequency: 1-2 times per week. Amount used: $50. Age of first use: 28. Date of Last Use: 12/21/17. Marijuana/Hashish. Route: Smoking. Frequency: 1-2 times per week. Amount used: 1 joint. Age of first use: 17. Date of Last Use : 12/20/17 Medical History: Hep C, Left ankle ORIF 12/21/17, Cholecystectomy Psychiatric History: Pt. denies h/o psychiatric hospitalizations. 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 Pt. denies h/o suicide attempts. Physical/Sexual Abuse/Trauma History: Denies. Additional Comment: Urine Drug Screen Results: THC-Marijuana, NADINE-Cocaine, OPI- Opiates, OXY-Oxycodone Mental Status Exam - Mental Status Exam Alert and Oriented to: Time, Place, Person Cognitive Function: Good Patient Appearance: Well Groomed Mood: Hopeful Affect: Appropriate Patient Behavior: Appropriate, Cooperative Speech Pattern: Clear, Appropriate Voice Loudness: Normal Thought Process: Goal Oriented Thought Disorder: Not Present Hallucinations: Denies Suicidal Ideation: Denies Homicidal Ideation: Denies Insight/Judgement: Poor Sleep: Poorly Appetite: Fair Muscle strength/Tone: Normal (Pt ambulates using a wheel chair due to fracture to left ankle. ) Gait/Station: Other Psychiatric Findings - Problem List ([place] 1, 2,3) (1) Opioid dependence with withdrawal Current Visit: Yes Status: Acute (2) Cocaine dependence, uncomplicated Current Visit: Yes Status: Acute (3) Insomnia Current Visit: Yes Status: Acute (4) Nicotine dependence Current Visit: Yes Status: Chronic Qualifiers: Nicotine product type: cigarettes Substance use status: in withdrawal Qualified Code(s): F17.213 - Nicotine dependence, cigarettes, with withdrawal - Initial Treatment Plan Initial Treatment Plan: Psychoeducation provided. Detoxification in progress. Ambien 10mg qhs ordered. Pt. reports favorable effect from previously taking ambien. Benefits and side effects (sleep walking) discussed. Verbal consent given. Will continue to monitor.
[2017-12-26] MEDS ORDERED: diazePAM 5 MG TABLET PO ONE (13:36)
[2017-12-26] MEDS: ZOLPIDEM TARTRATE 10 MG TABLET (PARK CARE ONLY) PO PRN (22:02)
[2017-12-26] MEDS: THIAMINE HCL 100 MG TABLET (FP) PO SCH (22:03)
[2017-12-26] MEDS: ACETAMINOPHEN 325 MG TABLET (FP) PO PRN (22:03)
[2017-12-26] MEDS: hydrOXYzine PAMOATE 50 MG CAPSULE (FP) PO PRN (22:03)
[2017-12-27 06:20] VITALS: BP 128/70; PULSE 66; TEMP 98.3
--- NOTE | 2017-12-27 08:43 | DS ---
[facility] Detox Discharge Summary Admission Date: 12/23/17 Discharge Date: 12/27/17 - History Present History: Cocaine Dependence, Opioid Dependence Additional Comments: PATIENT IS STABLE FOR DISCHARGE TODAY,HAS APPOINTMENT AT [facility] TO SEE ORTHOPEDIST TODAY, TO RETURN TO REHAB ARRANGEMENT Pertinent Past History: S/P SURGERY OF LEFT ANKLE FRACTURE - Physical Exam Results Vital Signs: Vital Signs Temperature 98.3 F 12/27/17 06:20 Pulse Rate 66 12/27/17 06:20 Respiratory Rate 16 12/27/17 06:20 Blood Pressure 128/70 12/27/17 06:20 O2 Sat by Pulse Oximetry (%) Pertinent Admission Physical Exam Findings: WITHDRAWAL SYMPTOM AND SIGNS HEPATITIS C INSOMNIA NICOTINE DEPENDENCE AMBULATION WITH CRUTCHES - Treatment Hospital Course: Detox Protocol Followed, Detoxed Safely, Responded well, Discharged Condition Good, Rehab Referral Accepted Patient has Accepted a Rehab Referral to: [facility] - Medication Discharge Medications: Ambulatory Orders Calcium Carbonate - 650 mg PO BID 12/23/17 Ergocalciferol (Vitamin D2) [Vitamin D2] 100,000 unit PO DAILY 12/23/17 Zolpidem Tartrate [Ambien] 10 mg PO HS 12/25/17 - Diagnosis (1) Opioid dependence with withdrawal Current Visit: Yes Status: Acute (2) Cocaine dependence, uncomplicated Current Visit: Yes Status: Acute (3) History of fracture of left ankle Current Visit: Yes Status: Acute (4) Insomnia Current Visit: Yes Status: Acute (5) Uses crutches Current Visit: Yes Status: Acute (6) Nicotine dependence Current Visit: Yes Status: Chronic Qualifiers: Nicotine product type: cigarettes Substance use status: in withdrawal Qualified Code(s): F17.213 - Nicotine dependence, cigarettes, with withdrawal - AMA Did Patient Leave Against Medical Advice: No
[2017-12-27] MEDS ORDERED: METHADONE HCL 10 MG TABLET (FOR DETOX USE ONLY) PO ONE (10:00)
[2017-12-28] MEDS ORDERED: METHADONE HCL 5 MG TABLET (FOR DETOX USE ONLY) PO ONE (06:00)
== END 2017-12-27 09:24 | disposition home or self-care (01) | DRG 773 ==
LOC: YASAS 11:34 → Y6N 13:12
PROVIDERS: ADMIT Internal Medicine; ATTEND Internal Medicine
PROC: HZ2ZZZZ Detoxification Services for Substance Abuse Treatment (ICD-10-PCS; principal; 2017-12-23)
DX: F11.23 Opioid dependence with withdrawal (principal); F14.20 Cocaine dependence, uncomplicated; F17.213 Nicotine dependence, cigarettes, with withdrawal; F19.24 Other psychoactive substance dependence with psychoactive substance-induced mood disorder; G47.00 Insomnia, unspecified; B18.2 Chronic viral hepatitis C; R26.2 Difficulty in walking, not elsewhere classified; Z99.89 Dependence on other enabling machines and devices; S82.892D Other fracture of left lower leg, subsequent encounter for closed fracture with routine healing; X58.XXXD Exposure to other specified factors, subsequent encounter
CPT/HCPCS: 36415; 80053; 81003; 85027; 86593; 93005; 93010

== ENCOUNTER 2018-01-13 15:33 | Inpatient (IN) | payer OTHER ==
[2018-01-13 17:17] VITALS: BMI 25.7
--- NOTE | 2018-01-13 19:34 | HP ---
COWS - Scale Resting Pulse: 0= [place] 80 or Below Sweatin=Flushed/Facial Moisture Restless Observation: 3= Extraneous Movement Pupil Size: 2= Moderately Dilated Bone or Joint Aches: 2= Severe Diffuse Aches Runny Nose/ Eye Tearin= Runny Nose/Eyes GI Upset > 30mins: 3= Vomiting/Diarrhea Tremor Observation: 2= Slight Tremor Visible Yawning Observation: 2= >3x During Session Anxiety or Irritability: 2=Irritable/Anxious Goose Flesh Skin: 0=Smooth Skin COWS Score: 20 Admission ROS S - HPI Chief Complaint: i need help to stop using heroin Allergies/Adverse Reactions: Allergies Allergy/AdvReac Type Severity Reaction Status Date / Time No Known Allergies Allergy Verified 01/13/18 21:03 History of Present Illness: this 32 years old male with heroin dependence,seeking detox,withdrawal symptom, last detox 12/23/17 to [facility] hepatitis c follow up with pmd in [facility] fx of left ankle 6 weeks ago had surgery at [facility] ambulate with crutches longest period of sobriety 1 year insomnia nicotine dependence multiple admissions in detox,keep relapsing Exam Limitations: No Limitations - Ebola screening Have you traveled outside of the country in the last 21 days: No (N) Have you had contact with anyone from an Ebola affected area: No Have you been sick,other than usual withdrawal symptoms: No Do you have a fever: No - Review of Systems Constitutional: Chills, Loss of Appetite, Malaise, Night Sweats, Changes in sleep, Weakness, Unintentional Wgt. Loss EENT: reports: Tearing, Nose Congestion Respiratory: reports: No Symptoms reported Cardiac: reports: No Symptoms Reported GI: reports: Diarrhea, Nausea, Poor Appetite, Vomiting, Abdominal cramping : reports: No Symptoms Reported Musculoskeletal: reports: Back Pain, Muscle Pain, Other (fracture of left ankle 6 weeks ago surgery of left ankle 12/21/17 ambulate with crutches dvt left leg on 01/13/18 in [facility] on eliqi=uis 10 mgs po bid since 01/23/18) Integumentary: reports: Dryness Neuro: reports: No Symptoms reported, Headache, Tremors, Weakness Endocrine: reports: No Symptoms Reported Hematology: reports: No Symptoms Reported Psychiatric: reports: No Sypmtoms Reported, Judgement Intact, Mood/Affect Appropiate, Orientated x3 (insomia) Patient History - Patient Medical History Hx Anemia: No Hx Asthma: No Hx Chronic Obstructive Pulmonary Disease (COPD): No Hx Cancer: No Hx Cardiac Disorders: No Hx Congestive Heart Failure: No Hx Hypertension: No Hx Hypercholesterolemia: No Hx Pacemaker: No HX Cerebrovascular Accident: No Hx Seizures: No Hx Dementia: No Hx Diabetes: No Hx Gastrointestinal Disorders: No Hx Liver Disease: No Hx Genitourinary Disorders: No Hx Sexually Transmitted Disorders: No Hx Renal Disease (ESRD): No Hx Human Immunodeficiency Virus (HIV): No (Negative 2017last ) Hx Hepatitis C: Yes (no treatement yet) Hx Depression: Yes (when young, declines psych) Hx Suicide Attempt: No Hx Bipolar Disorder: No Hx Schizophrenia: No Other Medical History: insomnia,dvt left leg treated on 01/13/18 - Patient Surgical History Past Surgical History: Yes Hx Neurologic Surgery: No Hx Cataract Extraction: No Hx Cardiac Surgery: No Hx Lung Surgery: No Hx Abdominal Surgery: No Hx Appendectomy: No Hx Cholecystectomy: Yes (2014 [facility] in [place]) Hx Genitourinary Surgery: No Hx Orthopedic Surgery: Yes (left ankle ORIF 12/21/17) Anesthesia Reaction: No - PPD History Previous Implant?: Yes Documented Results: Positive w/proof Implanted On Prior [facility] Admission?: No Date: 12/03/17 PPD to be Administered?: No - Smoking Cessation Smoking history: Current every day smoker Have you smoked in the past 12 months: Yes Aproximately how many cigarettes per day: 20 Hx Chewing Tobacco Use: No Initiated information on smoking cessation: Yes 'Breaking Loose' booklet given: 01/13/18 - Substance & Tx. History Hx Alcohol Use: No Hx Substance Use: Yes Substance Use Type: Heroin Hx Substance Use Treatment: Yes (12/23/17 to 12/27/17 [facility]) - Substances Abused Heroin Route: Injection Frequency: Daily Amount used: 10 to 15 bags Age of first use: 29 Date of Last Use: 01/12/18 Family Disease History - Family Disease History Family Disease History: Other: Father (living, healthy), Mother (living, healthy ), Brother (one, living, healthy) Admission Physical Exam [facility] - Vital Signs Vital Signs: Vital Signs - 24 hr 01/13/18 17:15 Temperature 98.3 F Pulse Rate 64 Respiratory 16 Rate Blood Pressure 93/55 - Physical General Appearance: Yes: Moderate Distress, Tremorous, Sweating, Anxious HEENTM: Yes: Normal ENT Inspection, ZACH, Photophobia Respiratory: Yes: Lungs Clear, Normal Breath Sounds, No Respiratory Distress Neck: Yes: Within Normal Limits, Supple, Trachea in good position Breast: Yes: Within Normal Limits Cardiology: Yes: Within Normal Limits, Regular Rhythm, Regular Rate, S1, S2 Abdominal: Yes: Within Normal Limits, Normal Bowel Sounds, Flat, Soft, Surgical Scar Genitourinary: Yes: Within Normal Limits Back: Yes: Muscle Spasm Musculoskeletal: Yes: Back pain, Muscle Pain Extremities: Yes: Within Normal Limits, Normal Range of Motion, Tremors, Other ( left boot immibilization) Neurological: Yes: crocodile farmer II-XII NML intact, Fully Oriented, Alert, Motor Strength 5/5 Integumentary: Yes: Dry Lymphatic: Yes: Within Normal Limits - Diagnostic (1) Opioid dependence with withdrawal Current Visit: No Status: Acute (2) Left leg DVT Current Visit: Yes Status: Acute (3) History of BCG vaccination Current Visit: No Status: Acute (4) History of fracture of left ankle Current Visit: No Status: Acute Comment: in cast - followed by [facility] - ORIF 12/21/17 (5) Insomnia Current Visit: No Status: Acute (6) Uses crutches Current Visit: No Status: Acute (7) S/P surgical manipulation of ankle joint Current Visit: Yes Status: Acute Cleared for Admission [facility] - Detox or Rehab [facility] Level of Care: Medically Managed Detox Regimen/Protocol: Methadone [facility] Breath Alcohol Content Breath Alcohol Content: 0 Urine Drug Screen - Results Drug Screen Negative: No Urine Drug Screen Results: OPI-Opiates, MTD-Methadone
[2018-01-13] MEDS ORDERED: P-EPHED 60MG/TRIPROLIDI 2.5MG TABLET PO PRN (20:26)
[2018-01-13] MEDS ORDERED: MAG HYDROX/AL HYDROX/SIMETH 30 ML UNIT-DOSE CUP PO PRN (20:26)
[2018-01-13] MEDS ORDERED: ACETAMINOPHEN 325 MG TABLET (FP) PO PRN (20:26)
[2018-01-13] MEDS ORDERED: LOPERAMIDE HCL 2 MG CAPSULE PO PRN (20:26)
[2018-01-13] MEDS ORDERED: guaiFENesin/D-METHORPHAN HB 10 ML UNIT-DOSE CUPS PO PRN (20:26)
[2018-01-13] MEDS ORDERED: IBUPROFEN 400 MG TABLET (FP) PO PRN (20:26)
[2018-01-13] MEDS ORDERED: MAGNESIUM CITRATE 300 ML BOTTLE PO PRN (20:26)
[2018-01-13] MEDS ORDERED: MENTHOL/PHENOL 1 EACH UD MM PRN (20:26)
[2018-01-13] MEDS ORDERED: MAGNESIUM HYDROX 2400MG/30ML ORAL SUSPENSION 30 ML CUP PO PRN (20:26)
[2018-01-13] MEDS ORDERED: METHADONE HCL 10 MG TABLET (FOR DETOX USE ONLY) PO ONE ×2 (20:26→23:00)
[2018-01-13] MEDS ORDERED: APIXABAN 5 MG TABLET PO SCH (22:00)
[2018-01-13] MEDS: THIAMINE HCL 100 MG TABLET (FP) PO SCH (22:03)
[2018-01-13] MEDS: APIXABAN 5 MG TABLET PO SCH (22:03)
[2018-01-13] MEDS: diazePAM 5 MG TABLET PO PRN (22:04)
[2018-01-13] MEDS: NICOTINE 21 MG/24 HOURS TOPICAL PATCH TD SCH (22:34)
[2018-01-14 00:14] LABS: URINE APPEARANCE CLEAR; URINE BILIRUBIN NEGATIVE (NEGATIVE); URINE BLOOD NEGATIVE (NEGATIVE); URINE COLOR LTYELLOW; URINE GLUCOSE (UA) NEGATIVE (NEGATIVE); URINE KETONE NEGATIVE (NEGATIVE); URINE LEUK ESTERASE NEGATIVE (NEGATIVE); URINE NITRITE NEGATIVE (NEGATIVE); URINE PROTEIN NEGATIVE (NEGATIVE); URINE UROBILINOGEN NEGATIVE mg/dL (0.2-1.0)
[2018-01-14] MEDS ORDERED: METHADONE HCL 10 MG TABLET (FOR DETOX USE ONLY) PO ONE (10:00)
[2018-01-14] MEDS: diazePAM 5 MG TABLET PO PRN ×3 (10:05→20:07)
[2018-01-14] MEDS: APIXABAN 5 MG TABLET PO SCH ×2 (10:06→22:43)
[2018-01-14] MEDS: PRENATAL VITAMINS W/ FOLIC ACID TABLET (FP) PO SCH (10:06)
[2018-01-14] MEDS: NICOTINE 21 MG/24 HOURS TOPICAL PATCH TD SCH (10:06)
--- NOTE | 2018-01-14 11:11 | EKG ---
Test Reason : Blood Pressure : / mmHG Vent. Rate : 054 BPM Atrial Rate : 054 BPM P-R Int : 160 ms QRS Dur : 094 ms QT Int : 422 ms P-R-T Axes : 050 067 070 degrees QTc Int : 400 ms SINUS BRADYCARDIA OTHERWISE NORMAL ECG WHEN COMPARED WITH ECG OF 23-DEC-2017 14:58, NO SIGNIFICANT CHANGE WAS FOUND Confirmed by NILAM COWART MD ([id number]) on 01/14/2018 11:11:21 AM Referred By: Confirmed By:NILAM COWART MD
[2018-01-14] MEDS ORDERED: FLU VACCINE QUAD 60 MCG/0.5 ML (MDV 17-18) IM ONE (12:00)
--- NOTE | 2018-01-14 12:38 | PN ---
BHS COWS - Scale Resting Pulse: 1= [place] 81-100 Sweatin=Flushed/Facial Moisture Restless Observation: 3= Extraneous Movement Pupil Size: 1= Pupils >than Normal Bone or Joint Aches: 2= Severe Diffuse Aches Runny Nose/ Eye Tearin= Runny Nose/Eyes GI Upset > 30mins: 2= Nausea/Diarrhea Tremor Observation of Outstretched Hands: 2= Slight Tremor Visible Yawning Observation: 2= >3x During Session Anxiety or Irritability: 2=Irritable/Anxious Goose Flesh Skin: 0=Smooth Skin COWS Score: 19 S Progress Note (SOAP) Subjective: ALERT,IRRITABLE,ANXIOUS,INTERRUPTED SLEEP,TREMOR,PAIN IN THE BODY AND BACK Objective: 01/14/18 12:38 Vital Signs Temperature 97.6 F 01/14/18 09:08 Pulse Rate 62 01/14/18 09:08 Respiratory Rate 20 01/14/18 09:08 Blood Pressure 109/56 01/14/18 09:08 O2 Sat by Pulse Oximetry (%) EKG SINUS BRADYCARDIA,RATE 54/MIN NO CHEST PAIN,NO SOB,NO DIZZINESS Laboratory Last Values Urine Color Ltyellow 01/13/18 00:00 Urine Appearance Clear 01/13/18 00:00 Urine pH 6.0 (5.0-8.0) 01/13/18 00:00 Ur Specific [place] 1.013 (1.001-1.035) 01/13/18 00:00 Urine Protein Negative (NEGATIVE) 01/13/18 00:00 Urine Glucose (UA) Negative (NEGATIVE) 01/13/18 00:00 Urine Ketones Negative (NEGATIVE) 01/13/18 00:00 Urine Blood Negative (NEGATIVE) 01/13/18 00:00 Urine Nitrite Negative (NEGATIVE) 01/13/18 00:00 Urine Bilirubin Negative (NEGATIVE) 01/13/18 00:00 Urine Urobilinogen Negative mg/dL (0.2-1.0) 01/13/18 00:00 Ur Leukocyte Esterase Negative (NEGATIVE) 01/13/18 00:00 LABS PENDING Assessment: 01/14/18 12:42 WITHDRAWAL SYMPTOM Plan: CONTINUE DETOX
--- NOTE | 2018-01-14 12:51 | CONSULT ---
[facility] Psychiatric Consult - Data Date of interview: 01/14/18 Admission source: Self-referred Identifying data: Mr Dixon is a 32 years old single [place]-born male, unemployed , supported by and lives with family seeking detox treatment for heroin Substance Abuse History: Report history of heroin use. Started using heroin at age 29, consumes 10-15 bags daily. Last used on 01/12/18 Medical History: Significant for hepatitis c, PPD+ and history of dvt left leg and orthosurgery of fracture of left ankle. Smokes cigarettes 1ppd Psychiatric History: Patient reports that he was diagnosed with MDD in the past and treated with wellbutrin + ambien until 2004 (dropped out of psychiatric follow up). Claims that he used to be under the care of a private psychiatrist in [facility]. Reports being off wellbutrin for several years but has remained adherent to zolpidem (chronic insomnia). No current contact with psychiatric OPD care providers. Patient denies history of suicide attempts. Physical/Sexual Abuse/Trauma History: Denies history of emotional, physical or sexual abuse as DV relationship. Additional Comment: Reports history 3 previous midemeanor arrests Mental Status Exam - Mental Status Exam Alert and Oriented to: Time, Place Cognitive Function: Fair Patient Appearance: Well Groomed Patient Behavior: Cooperative Speech Pattern: Clear Voice Loudness: Normal Thought Process: Intact, Goal Oriented Thought Disorder: Not Present Hallucinations: Denies Suicidal Ideation: Denies Homicidal Ideation: Denies Insight/Judgement: Poor Sleep: Poorly Appetite: Fair Muscle strength/Tone: Normal Gait/Station: Normal Psychiatric Findings - Problem List ([place] 1, 2,3) (1) Substance induced mood disorder Current Visit: Yes Status: Acute (2) MDD (major depressive disorder) Current Visit: Yes Status: Ruled-out (3) Substance-induced sleep disorder Current Visit: Yes Status: Acute (4) Opioid dependence with withdrawal Current Visit: No Status: Acute (5) Cocaine dependence, uncomplicated Current Visit: No Status: Acute (6) Nicotine dependence Current Visit: No Status: Chronic Qualifiers: Nicotine product type: cigarettes Substance use status: in withdrawal Qualified Code(s): F17.213 - Nicotine dependence, cigarettes, with withdrawal (7) Left leg DVT Current Visit: Yes Status: Acute (8) History of BCG vaccination Current Visit: No Status: Chronic (9) History of fracture of left ankle Current Visit: No Status: Resolved Comment: in cast - followed by [facility] - ORIF 12/21/17 (10) Hep C w/o coma, chronic Current Visit: No Status: Chronic - Initial Treatment Plan Initial Treatment Plan: 1) Start Ambien 10 mg po HS prn for insomnia. 2) Continue inpatient detoxification
[2018-01-14] MEDS: NICOTINE POLACRILEX 2 MG GUM BC PRN (22:42)
[2018-01-14] MEDS: ZOLPIDEM TARTRATE 5 MG TABLET PO PRN (22:42)
[2018-01-14] MEDS: THIAMINE HCL 100 MG TABLET (FP) PO SCH (22:43)
[2018-01-15] MEDS: diazePAM 5 MG TABLET PO PRN ×4 (08:04→22:19)
[2018-01-15] MEDS ORDERED: METHADONE HCL 5 MG TABLET (FOR DETOX USE ONLY) PO ONE (10:00)
[2018-01-15] MEDS: PRENATAL VITAMINS W/ FOLIC ACID TABLET (FP) PO SCH (10:11)
[2018-01-15] MEDS: NICOTINE 21 MG/24 HOURS TOPICAL PATCH TD SCH (10:11)
[2018-01-15] MEDS: APIXABAN 5 MG TABLET PO SCH ×2 (10:15→22:20)
[2018-01-15 10:37] LABS: HEMOGLOBIN 13.5 GM/dL (11.7-16.9); MCH 29.4 pg (25.7-33.7); MCHC 32.9 g/dl (32.0-35.9); MEAN CELL VOLUME 89.6 fl (80-96); MEAN PLT VOLUME 8.3 fl (7.5-11.1); PLATELET COUNT 292 K/MM3 (134-434); RBC 4.58 M/mm3 (4.00-5.60); RDW 14.9 % (11.9-15.9); WHITE BLOOD COUNT 6.7 K/mm3 (4.0-10.0)
[2018-01-15 10:53] LABS: CHLORIDE 107 mmol/L (98-107); POTASSIUM 4.3 mmol/L (3.5-5.1); SODIUM 140 mmol/L (136-145)
[2018-01-15 11:17] LABS: ALBUMIN 3.9 g/dl (3.4-5.0); ALK PHOS 83 U/L (45-117); ANION GAP 8 (8-16); BILIRUBIN,TOTAL 0.5 mg/dL (0.2-1.0); BLOOD UREA NITROGEN 13 mg/dL (7-18); CALCIUM 8.9 mg/dL (8.5-10.1); CO2 25 mmol/L (21-32); CREATININE 0.9 mg/dL (0.7-1.3); GLUCOSE,RANDOM 81 mg/dL (74-106); SGOT/AST 13 U/L (15-37); SGPT/ALT 24 U/L (12-78); TOT PROT 7.2 g/dl (6.4-8.2)
--- NOTE | 2018-01-15 14:34 | PN ---
BHS COWS - Scale Resting Pulse: 1= [place] 81-100 Sweatin=Flushed/Facial Moisture Restless Observation: 0= Sits Still Pupil Size: 0= Normal to Room Light Bone or Joint Aches: 2= Severe Diffuse Aches Runny Nose/ Eye Tearin= None GI Upset > 30mins: 3= Vomiting/Diarrhea Tremor Observation of Outstretched Hands: 2= Slight Tremor Visible Yawning Observation: 2= >3x During Session Anxiety or Irritability: 2=Irritable/Anxious Goose Flesh Skin: 0=Smooth Skin COWS Score: 14 S Progress Note (SOAP) Subjective: Tremors, Sweating, Vomiting, Body Aches, Interrupted Sleep. Objective: PT. A & O X 3, OBSERVED AMBULATING ON UNIT WITH ASSISTANCE OF CRUTCHES. NO ACUTE DISTRESS. 01/15/18 14:32 Vital Signs Temperature 98.1 F 01/15/18 13:51 Pulse Rate 82 01/15/18 13:51 Respiratory Rate 20 01/15/18 13:51 Blood Pressure 112/58 01/15/18 13:51 O2 Sat by Pulse Oximetry (%) Laboratory Tests 01/13/18 01/15/18 01/15/18 00:00 08:10 08:10 WBC 6.7 D RBC 4.58 Hgb 13.5 Hct 41.0 MCV 89.6 MCH 29.4 MCHC 32.9 RDW 14.9 Plt Count 292 MPV 8.3 Sodium 140 Potassium 4.3 Chloride 107 Carbon Dioxide 25 Anion Gap 8 BUN 13 Creatinine 0.9 Creat Clearance w eGFR > 60 Random Glucose 81 Calcium 8.9 Total Bilirubin 0.5 D AST 13 L ALT 24 Alkaline Phosphatase 83 Total Protein 7.2 Albumin 3.9 Urine Color Ltyellow Urine Appearance Clear Urine pH 6.0 Ur Specific [place] 1.013 Urine Protein Negative Urine Glucose (UA) Negative Urine Ketones Negative Urine Blood Negative Urine Nitrite Negative Urine Bilirubin Negative Urine Urobilinogen Negative Ur Leukocyte Esterase Negative RPR Titer HIV 1&2 Antibody Screen HIV P24 Antigen 01/15/18 01/15/18 08:10 08:10 WBC RBC Hgb Hct MCV MCH MCHC RDW Plt Count MPV Sodium Potassium Chloride Carbon Dioxide Anion Gap BUN Creatinine Creat Clearance w eGFR Random Glucose Calcium Total Bilirubin AST ALT Alkaline Phosphatase Total Protein Albumin Urine Color Urine Appearance Urine pH Ur Specific [place] Urine Protein Urine Glucose (UA) Urine Ketones Urine Blood Urine Nitrite Urine Bilirubin Urine Urobilinogen Ur Leukocyte Esterase RPR Titer Nonreactive HIV 1&2 Antibody Screen Negative HIV P24 Antigen Negative LABS NOTED. Assessment: 01/15/18 14:33 WITHDRAWAL SYMPTOMS. Plan: CONTINUE DETOX.
[2018-01-15] MEDS: NICOTINE POLACRILEX 2 MG GUM BC PRN ×3 (17:46→22:20)
[2018-01-15] MEDS: CYCLOBENZAPRINE HCL 5 MG TABLET PO PRN (20:20)
[2018-01-15] MEDS: THIAMINE HCL 100 MG TABLET (FP) PO SCH (22:18)
[2018-01-15] MEDS: ZOLPIDEM TARTRATE 5 MG TABLET PO PRN (22:19)
[2018-01-16] MEDS: diazePAM 5 MG TABLET PO PRN ×3 (06:10→18:17)
[2018-01-16] MEDS ORDERED: METHADONE HCL 5 MG TABLET (FOR DETOX USE ONLY) PO ONE (10:00)
[2018-01-16] MEDS: PRENATAL VITAMINS W/ FOLIC ACID TABLET (FP) PO SCH (10:29)
[2018-01-16] MEDS: APIXABAN 5 MG TABLET PO SCH ×2 (10:29→22:07)
[2018-01-16] MEDS: CYCLOBENZAPRINE HCL 5 MG TABLET PO PRN ×2 (10:29→19:38)
[2018-01-16] MEDS: NICOTINE 21 MG/24 HOURS TOPICAL PATCH TD SCH (10:32)
--- NOTE | 2018-01-16 11:59 | PN ---
BHS Progress Note (SOAP) Subjective: Fatigue, Anxious, Sweating. Objective: PT. A & O X 3, OBSERVED AMBULATING ON UNIT WITH CRUTCHES. NO ACUTE DISTRESS. 01/16/18 11:58 Vital Signs Temperature 98.2 F 01/16/18 06:15 Pulse Rate 65 01/16/18 06:15 Respiratory Rate 18 01/16/18 06:15 Blood Pressure 106/63 01/16/18 06:15 O2 Sat by Pulse Oximetry (%) Laboratory Tests 01/13/18 01/15/18 01/15/18 00:00 08:10 08:10 WBC 6.7 D RBC 4.58 Hgb 13.5 Hct 41.0 MCV 89.6 MCH 29.4 MCHC 32.9 RDW 14.9 Plt Count 292 MPV 8.3 Sodium 140 Potassium 4.3 Chloride 107 Carbon Dioxide 25 Anion Gap 8 BUN 13 Creatinine 0.9 Creat Clearance w eGFR > 60 Random Glucose 81 Calcium 8.9 Total Bilirubin 0.5 D AST 13 L ALT 24 Alkaline Phosphatase 83 Total Protein 7.2 Albumin 3.9 Urine Color Ltyellow Urine Appearance Clear Urine pH 6.0 Ur Specific [place] 1.013 Urine Protein Negative Urine Glucose (UA) Negative Urine Ketones Negative Urine Blood Negative Urine Nitrite Negative Urine Bilirubin Negative Urine Urobilinogen Negative Ur Leukocyte Esterase Negative RPR Titer HIV 1&2 Antibody Screen HIV P24 Antigen 01/15/18 01/15/18 08:10 08:10 WBC RBC Hgb Hct MCV MCH MCHC RDW Plt Count MPV Sodium Potassium Chloride Carbon Dioxide Anion Gap BUN Creatinine Creat Clearance w eGFR Random Glucose Calcium Total Bilirubin AST ALT Alkaline Phosphatase Total Protein Albumin Urine Color Urine Appearance Urine pH Ur Specific [place] Urine Protein Urine Glucose (UA) Urine Ketones Urine Blood Urine Nitrite Urine Bilirubin Urine Urobilinogen Ur Leukocyte Esterase RPR Titer Nonreactive HIV 1&2 Antibody Screen Negative HIV P24 Antigen Negative LABS NOTED. Assessment: 01/16/18 11:59 WITHDRAWAL SYMPTOMS. Plan: CONTINUE DETOX. INCREASE DAILY PO FLUID INTAKE.
[2018-01-16] MEDS: NICOTINE POLACRILEX 2 MG GUM BC PRN ×2 (18:17→21:44)
[2018-01-16] MEDS: THIAMINE HCL 100 MG TABLET (FP) PO SCH (22:07)
[2018-01-16] MEDS: ZOLPIDEM TARTRATE 5 MG TABLET PO PRN (22:07)
[2018-01-17] MEDS ORDERED: METHADONE HCL 10 MG TABLET (FOR DETOX USE ONLY) PO ONE (10:00)
[2018-01-17] MEDS: APIXABAN 5 MG TABLET PO SCH ×2 (10:10→22:08)
[2018-01-17] MEDS: NICOTINE 21 MG/24 HOURS TOPICAL PATCH TD SCH (10:10)
[2018-01-17] MEDS: PRENATAL VITAMINS W/ FOLIC ACID TABLET (FP) PO SCH (10:11)
[2018-01-17] MEDS: CYCLOBENZAPRINE HCL 5 MG TABLET PO PRN ×2 (10:14→22:08)
--- NOTE | 2018-01-17 11:05 | PN ---
BHS Progress Note (SOAP) Subjective: Sweating, Fatigue, Body aches. Objective: PT. A & O X 3, OBSERVED AMBULATING ON UNIT. NO ACUTE DISTRESS. 01/17/18 11:00 Vital Signs Temperature 96.6 F L 01/17/18 09:18 Pulse Rate 69 01/17/18 09:18 Respiratory Rate 20 01/17/18 09:18 Blood Pressure 97/56 01/17/18 09:18 O2 Sat by Pulse Oximetry (%) Laboratory Tests 01/13/18 01/15/18 01/15/18 00:00 08:10 08:10 WBC 6.7 D RBC 4.58 Hgb 13.5 Hct 41.0 MCV 89.6 MCH 29.4 MCHC 32.9 RDW 14.9 Plt Count 292 MPV 8.3 Sodium 140 Potassium 4.3 Chloride 107 Carbon Dioxide 25 Anion Gap 8 BUN 13 Creatinine 0.9 Creat Clearance w eGFR > 60 Random Glucose 81 Calcium 8.9 Total Bilirubin 0.5 D AST 13 L ALT 24 Alkaline Phosphatase 83 Total Protein 7.2 Albumin 3.9 Urine Color Ltyellow Urine Appearance Clear Urine pH 6.0 Ur Specific [place] 1.013 Urine Protein Negative Urine Glucose (UA) Negative Urine Ketones Negative Urine Blood Negative Urine Nitrite Negative Urine Bilirubin Negative Urine Urobilinogen Negative Ur Leukocyte Esterase Negative RPR Titer HIV 1&2 Antibody Screen HIV P24 Antigen 01/15/18 01/15/18 08:10 08:10 WBC RBC Hgb Hct MCV MCH MCHC RDW Plt Count MPV Sodium Potassium Chloride Carbon Dioxide Anion Gap BUN Creatinine Creat Clearance w eGFR Random Glucose Calcium Total Bilirubin AST ALT Alkaline Phosphatase Total Protein Albumin Urine Color Urine Appearance Urine pH Ur Specific [place] Urine Protein Urine Glucose (UA) Urine Ketones Urine Blood Urine Nitrite Urine Bilirubin Urine Urobilinogen Ur Leukocyte Esterase RPR Titer Nonreactive HIV 1&2 Antibody Screen Negative HIV P24 Antigen Negative LABS NOTED. Assessment: 01/17/18 11:01 WITHDRAWAL SYMPTOMS. Plan: CONTINUE DETOX.
[2018-01-17] MEDS: hydrOXYzine PAMOATE 25 MG CAPSULE (FP) PO PRN ×2 (12:37→17:22)
[2018-01-17] MEDS: NICOTINE POLACRILEX 2 MG GUM BC PRN ×2 (12:37→17:22)
[2018-01-17] MEDS: THIAMINE HCL 100 MG TABLET (FP) PO SCH (22:07)
[2018-01-17] MEDS: ZOLPIDEM TARTRATE 5 MG TABLET PO PRN (22:08)
[2018-01-18] MEDS ORDERED: METHADONE HCL 5 MG TABLET (FOR DETOX USE ONLY) PO ONE (06:00)
[2018-01-18 09:09] VITALS: BP 114/57; PULSE 79; TEMP 97.1
[2018-01-19] MEDS ORDERED: APIXABAN 5 MG TABLET PO SCH (10:00)
== END 2018-01-18 09:26 | disposition home or self-care (01) | DRG 773 ==
LOC: YASAS 15:33 → Y6N 18:49 → Y3N 21:41
PROVIDERS: ADMIT Internal Medicine; ATTEND Internal Medicine
PROC: HZ2ZZZZ Detoxification Services for Substance Abuse Treatment (ICD-10-PCS; principal; 2018-01-13)
DX: F11.23 Opioid dependence with withdrawal (principal); F14.20 Cocaine dependence, uncomplicated; F17.210 Nicotine dependence, cigarettes, uncomplicated; F33.9 Major depressive disorder, recurrent, unspecified; F19.24 Other psychoactive substance dependence with psychoactive substance-induced mood disorder; G47.00 Insomnia, unspecified; I82.402 Acute embolism and thrombosis of unspecified deep veins of left lower extremity; Z99.89 Dependence on other enabling machines and devices; Z87.81 Personal history of (healed) traumatic fracture; Z92.29 Personal history of other drug therapy
CPT/HCPCS: 36415; 80053; 81003; 85027; 86593; 87389; 93005; 93010

== ENCOUNTER 2018-03-31 23:34 | Inpatient (IN) | payer OTHER ==
[2018-03-31 23:52] VITALS: BMI 24.0
--- NOTE | 2018-04-01 00:11 | HP ---
COWS - Scale Resting Pulse: 0= [place] 80 or Below Sweatin=Flushed/Facial Moisture Restless Observation: 1= Difficult to Sit Still Pupil Size: 1= Pupils >than Normal Bone or Joint Aches: 4=Acute Joint/Muscle Pain Runny Nose/ Eye Tearin= Nasal Congestion GI Upset > 30mins: 1= Stomach Cramp Tremor Observation: 2= Slight Tremor Visible Yawning Observation: 0= None Anxiety or Irritability: 2=Irritable/Anxious Goose Flesh Skin: 0=Smooth Skin COWS Score: 14 Admission [facility] Chief Complaint: SEEKING DETOX FOR C/O HEROIN DEPENDENCE AND WITHDRAWAL SX'S Allergies/Adverse Reactions: Allergies Allergy/AdvReac Type Severity Reaction Status Date / Time No Known Allergies Allergy Verified 04/01/18 00:00 History of Present Illness: 32 Y.O. MALE WITH HX/O OPIOID DEPENDENCE HERE FOR DETOX. CLIENT IS KNOWN TO THIS PROGRAM. LAST HERE A MONTH AGO. HE HAS BEEN ON A SBX MGMT LAST FILLED RX 02/26/2018 NOTED BY [facility] [employer]SULT[employer]. CLIENT REPORTS HE HAS NOT TAKEN SBX FOR THE LAST 2 WEEKS HE HAS BEEN USING HEROIN. REPORTS HE DOES NOT HAVE A PRESCRIBER FOR CONTINUAL FOLLOW UP AND IS NOW SEEKING DETOX. REPORTS LONGEST CLEAN TIIME 1 YEAR SELF SUSTAINED. PMHX: LLE DVT ON ELOQUIS, LLE ANKLE FX WITH ORTHO BOOT. DENIES PAST MENTAL HEALTH HX TO INCLUDED PAST OR PRESENT SI/HI, A/V HALLUCINATIONS. Exam Limitations: No Limitations - Ebola screening Have you traveled outside of the country in the last 21 days: No Have you had contact with anyone from an Ebola affected area: No Have you been sick,other than usual withdrawal symptoms: No - Review of Systems Constitutional: Chills, Malaise, Night Sweats, Changes in sleep EENT: reports: No Symptoms Reported Respiratory: reports: No Symptoms reported Cardiac: reports: No Symptoms Reported GI: reports: Nausea, Poor Fluid Intake, Abdominal cramping : reports: No Symptoms Reported Musculoskeletal: reports: Joint Pain Integumentary: reports: No Symptoms Reported Neuro: reports: No Symptoms reported Endocrine: reports: No Symptoms Reported Hematology: reports: Blood Clots (DVT'S ON ELOQUIS) Psychiatric: reports: Anxious, Depressed Other Systems: Reviewed and Negative Patient History - Patient Medical History Hx Anemia: No Hx Asthma: No Hx Chronic Obstructive Pulmonary Disease (COPD): No Hx Cancer: No Hx Cardiac Disorders: No Hx Congestive Heart Failure: No Hx Hypertension: No Hx Hypercholesterolemia: No Hx Pacemaker: No HX Cerebrovascular Accident: No Hx Seizures: No Hx Dementia: No Hx Diabetes: No Hx Gastrointestinal Disorders: No Hx Liver Disease: No Hx Genitourinary Disorders: No Hx Sexually Transmitted Disorders: No Hx Renal Disease (ESRD): No Hx Human Immunodeficiency Virus (HIV): No Hx Hepatitis C: Yes (no treatement yet) Hx Depression: Yes (MDD) Hx Suicide Attempt: No Hx Bipolar Disorder: No Hx Schizophrenia: No Other Medical History: LLE DVT - Patient Surgical History Past Surgical History: Yes Hx Neurologic Surgery: No Hx Cataract Extraction: No Hx Cardiac Surgery: No Hx Lung Surgery: No Hx Abdominal Surgery: No Hx Appendectomy: No Hx Cholecystectomy: Yes (2014 [facility] in [place]) Hx Genitourinary Surgery: No Hx Orthopedic Surgery: Yes (left ankle ORIF 12/21/17) Anesthesia Reaction: No - PPD History Previous Implant?: Yes Documented Results: Negative w/proof Implanted On Prior [facility] Admission?: Yes Date: 12/03/17 Results: 0MM PPD to be Administered?: No - Smoking Cessation Smoking history: Current every day smoker Have you smoked in the past 12 months: Yes Aproximately how many cigarettes per day: 20 Cigars Per Day: 0 Hx Chewing Tobacco Use: No Initiated information on smoking cessation: Yes 'Breaking Loose' booklet given: 04/01/18 - Substance & Tx. History Hx Alcohol Use: No Hx Substance Use: Yes Substance Use Type: Heroin, Marijuana Hx Substance Use Treatment: Yes ([facility]) - Substances Abused HEROIN Route: Injection Frequency: Daily Amount used: 10 BAGS Age of first use: 28 Date of Last Use: 03/31/18 THC Route: Smoking Frequency: 1-3 times last 30 days Amount used: 1 JOINT Age of first use: 12 Date of Last Use: 03/29/18 Family Disease History - Family Disease History Family History: Denies Family Disease History: Other: Father (living, healthy), Mother (living, healthy ), Brother (one, living, healthy) Admission Physical Exam BHS - Vital Signs Vital Signs: Vital Signs - 24 hr 03/31/18 23:51 Temperature 98.9 F Pulse Rate 74 Respiratory 18 Rate Blood Pressure 118/75 - Physical General Appearance: Yes: Disheveled, Mild Distress, Tremorous, Sweating, Anxious HEENTM: Yes: EOMI, Normocephalic, Normal Voice, ZACH, Pharynx Normal, Nasal Congestion Respiratory: Yes: Chest Non-Tender, Lungs Clear, Normal Breath Sounds, No Respiratory Distress, No Accessory Muscle Use Neck: Yes: No masses,lesions,Nodules, Supple, Trachea in good position Breast: Yes: Breast Exam Deferred Cardiology: Yes: Regular Rhythm, Regular Rate, S1, S2 Abdominal: Yes: Normal Bowel Sounds, Non Tender, Flat, Soft Genitourinary: Yes: Within Normal Limits Back: Yes: Normal Inspection Musculoskeletal: Yes: full range of Motion, Gait Steady, Other (LLE ORTHO BOOT) Extremities: Yes: Normal Range of Motion, Non-Tender, Tremors Neurological: Yes: Fully Oriented, Alert, Motor Strength 5/5 Integumentary: Yes: Warm, Moist Lymphatic: Yes: Within Normal Limits - Diagnostic (1) Opioid dependence with withdrawal Current Visit: Yes Status: Chronic (2) Sea-boot foot of left lower extremity Current Visit: Yes Status: Acute Qualifiers: Encounter type: sequela Qualified Code(s): T69.022S - Immersion foot, left foot, sequela (3) Substance induced mood disorder Current Visit: Yes Status: Suspected (4) Nicotine dependence Current Visit: Yes Status: Chronic Qualifiers: Nicotine product type: cigarettes Substance use status: in withdrawal Qualified Code(s): F17.213 - Nicotine dependence, cigarettes, with withdrawal (5) History of fracture of left ankle Current Visit: Yes Status: Resolved Comment: in cast - followed by [facility] - ORIF 12/21/17 (6) Left leg DVT Current Visit: Yes Status: Resolved Qualifiers: Cleared for Admission [facility] - Detox or Rehab [facility] Level of Care: Medically Managed Detox Regimen/Protocol: Methadone Claeared for Rehab Admission: No S Breath Alcohol Content Breath Alcohol Content: 0 Urine Drug Screen - Results Drug Screen Negative: No Urine Drug Screen Results: THC-Marijuana, OPI-Opiates
[2018-04-01] MEDS ORDERED: MAG HYDROX/AL HYDROX/SIMETH 30 ML UNIT-DOSE CUP PO PRN (00:15)
[2018-04-01] MEDS ORDERED: ACETAMINOPHEN 325 MG TABLET (FP) PO PRN (00:15)
[2018-04-01] MEDS ORDERED: MAGNESIUM CITRATE 300 ML BOTTLE PO PRN (00:15)
[2018-04-01] MEDS ORDERED: IBUPROFEN 400 MG TABLET (FP) PO PRN (00:15)
[2018-04-01] MEDS ORDERED: guaiFENesin/D-METHORPHAN HB 10 ML UNIT-DOSE CUPS PO PRN (00:15)
[2018-04-01] MEDS ORDERED: MENTHOL/PHENOL 1 EACH UD MM PRN (00:15)
[2018-04-01] MEDS ORDERED: hydrOXYzine PAMOATE 50 MG CAPSULE (FP) PO PRN (00:15)
[2018-04-01] MEDS ORDERED: METHADONE HCL 10 MG TABLET (FOR DETOX USE ONLY) PO ONE ×3 (00:15→23:00)
[2018-04-01] MEDS ORDERED: MAGNESIUM HYDROX 2400MG/30ML ORAL SUSPENSION 30 ML CUP PO PRN (00:15)
[2018-04-01] MEDS ORDERED: NICOTINE POLACRILEX 2 MG GUM BC PRN (00:15)
[2018-04-01] MEDS ORDERED: LOPERAMIDE HCL 2 MG CAPSULE PO PRN (00:15)
[2018-04-01] MEDS ORDERED: P-EPHED 60MG/TRIPROLIDI 2.5MG TABLET PO PRN (00:15)
[2018-04-01] MEDS: diazePAM 5 MG TABLET PO PRN ×4 (01:47→19:13)
--- NOTE | 2018-04-01 09:20 | CONSULT ---
<Todd Beaver - Last Filed: 04/01/18 09:21> [facility] Psychiatric Consult - Data Date of interview: 04/01/18 Admission source: Rashida-referred Identifying data: 32 y/o male [place] born unemployed, domiciled, seeking detox for opioid use and cannabis Substance Abuse History: Reports history of heroin and marijuana use. Refer to addiction counselor note for more information Medical History: Significant for hepatitis C, and history of BCG vaccination, DVT left leg and orthosurgery of fracture of left ankle. Smokes cigarettes 1ppd Psychiatric History: Patient reports that he was diagnosed with MDD while in [facility] and treated with wellbutrin. Throughout the years, he has received treatment on & off. Reports that he was seeing a private psychiatrist in [place]. (dropped out of psychiatric follow up) and was prescribed Wellbutrin and Ambien. Reports being off wellbutrin for several years but has remained adherent to zolpidem (chronic insomnia). Denies history of previous psychiatric hospitalization or suicidal attempt. At present, reports feeling depressed, anxious and sleeping poorly Physical/Sexual Abuse/Trauma History: Denies history of emotional, physical or sexual abuse as DV relationship. Additional Comment: Reports history 3 previous misdemeanor arrests. No probation currently <Dewayne Conrad - Last Filed: 04/01/18 14:54> Psychiatric Findings - Problem List ([place] 1, 2,3) (1) Substance induced mood disorder Current Visit: Yes Status: Acute (2) Substance-induced sleep disorder Current Visit: Yes Status: Chronic (3) Nicotine dependence Current Visit: Yes Status: Chronic Qualifiers: Nicotine product type: cigarettes Substance use status: in withdrawal Qualified Code(s): F17.213 - Nicotine dependence, cigarettes, with withdrawal (4) Opioid dependence with withdrawal Current Visit: Yes Status: Acute (5) Cocaine dependence, uncomplicated Current Visit: No Status: Acute (6) History of fracture of left ankle Current Visit: Yes Status: Chronic Comment: in cast - followed by [facility] - ORIF 12/21/17 (7) Left leg DVT Current Visit: Yes Status: Resolved Qualifiers: (8) Crutches as ambulation aid Current Visit: No Status: Chronic
[2018-04-01 09:55] LABS: ALBUMIN 3.7 g/dl (3.4-5.0); ALK PHOS 113 U/L (45-117); ANION GAP 8 (8-16); BILIRUBIN,TOTAL 0.3 mg/dL (0.2-1.0); BLOOD UREA NITROGEN 12 mg/dL (7-18); CALCIUM 8.5 mg/dL (8.5-10.1); CHLORIDE 108 mmol/L (98-107); CO2 24 mmol/L (21-32); CREATININE 0.8 mg/dL (0.7-1.3); GLUCOSE,RANDOM 98 mg/dL (74-106); POTASSIUM 4.3 mmol/L (3.5-5.1); SGOT/AST 11 U/L (15-37); SGPT/ALT 16 U/L (12-78); SODIUM 140 mmol/L (136-145)
[2018-04-01] MEDS: NICOTINE 21 MG/24 HOURS TOPICAL PATCH TD SCH (10:04)
[2018-04-01] MEDS: PRENATAL VITAMINS W/ FOLIC ACID TABLET (FP) PO SCH (10:04)
[2018-04-01] MEDS: APIXABAN 5 MG TABLET PO SCH ×2 (10:05→22:07)
[2018-04-01 10:06] LABS: HEMATOCRIT 38.4 % (35.4-49); MCH 30.6 pg (25.7-33.7); MEAN PLT VOLUME 7.9 fl (7.5-11.1); PLATELET COUNT 359 K/MM3 (134-434); RBC 4.27 M/mm3 (4.00-5.60); RDW 14.7 % (11.9-15.9); WHITE BLOOD COUNT 8.1 K/mm3 (4.0-10.0)
--- NOTE | 2018-04-01 14:06 | CONSULT ---
[facility] Psychiatric Consult - Data Date of interview: 04/01/18 Admission source: Self -referred Identifying data: 32 y/o male [place] born unemployed, single, domiciled, seeking detox for opioid use and cannabis Substance Abuse History: Reports history of heroin and marijuana use. Refer to addiction counselor note for more information Medical History: Significant for hepatitis C, and history of BCG vaccination, DVT left leg and ortho surgery of fracture of left ankle. Smokes cigarettes 1ppd. It is to note that patient removed the cast from his left ankle in the unit Psychiatric History: Psychiatric History: Patient reports that he was diagnosed with MDD while in [facility] and treated with wellbutrin. Throughout the years, he has received treatment on & off. Reports that he was seeing a private psychiatrist in [place]. (dropped out of psychiatric follow up) and was prescribed Wellbutrin and Ambien. Reports being off wellbutrin for several years but has remained adherent to zolpidem (chronic insomnia). Denies history of previous psychiatric hospitalization or suicidal attempt. At present, reports feeling depressed, anxious and sleeping poorl Physical/Sexual Abuse/Trauma History: Denies past history of abuse Additional Comment: Past history of trouble owith the law, no fci time Mental Status Exam - Mental Status Exam Alert and Oriented to: Place, Person Cognitive Function: Grossly Intact Patient Appearance: Disheveled Mood: Irritable Affect: Constricted Patient Behavior: Distractible, Cooperative Speech Pattern: Clear Voice Loudness: Normal Thought Process: Intact Thought Disorder: Not Present Hallucinations: Denies Suicidal Ideation: Denies Homicidal Ideation: Denies Insight/Judgement: Poor Sleep: Poorly Appetite: Fair Muscle strength/Tone: Normal Gait/Station: Normal (Patient was marginaly cooperative as he complians of pain and experiencing withdrawal symptoms) Psychiatric Findings - Problem List ([place] 1, 2,3) (1) Substance induced mood disorder Current Visit: Yes Status: Acute (2) Substance-induced sleep disorder Current Visit: Yes Status: Chronic (3) Nicotine dependence Current Visit: Yes Status: Chronic Qualifiers: Nicotine product type: cigarettes Substance use status: in withdrawal Qualified Code(s): F17.213 - Nicotine dependence, cigarettes, with withdrawal (4) Opioid dependence with withdrawal Current Visit: Yes Status: Acute (5) Cocaine dependence, uncomplicated Current Visit: No Status: Acute (6) History of fracture of left ankle Current Visit: Yes Status: Chronic Comment: in cast - followed by [facility] - ORIF 12/21/17 (7) Left leg DVT Current Visit: Yes Status: Resolved Qualifiers: (8) Crutches as ambulation aid Current Visit: No Status: Chronic - Initial Treatment Plan Initial Treatment Plan: Continue inpatient detox treatment
[2018-04-01] MEDS ORDERED: ONDANSETRON *ODT* 4 MG TABLET SL PRN (14:11)
--- NOTE | 2018-04-01 14:14 | PN ---
[facility] Progress Note Note: PT ADMITTED EARLIER TODAY. C/O NAUSEA/VOMITTING, DECREASED APPETITE,SWEATS/ CHILLS, BODY ACHES. ALERT O X 3. Vital Signs 04/01/18 04/01/18 04/01/18 06:39 09:34 13:19 Temperature 97.2 F L 97.8 F 98.1 F Pulse Rate 62 57 L 83 Respiratory 18 18 18 Rate Blood Pressure 102/56 98/60 97/59 Laboratory Tests 04/01/18 04/01/18 04/01/18 07:15 07:15 07:15 WBC 8.1 RBC 4.27 Hgb 13.0 D Hct 38.4 MCV 90.0 MCH 30.6 MCHC 34.0 RDW 14.7 Plt Count 359 D MPV 7.9 Sodium 140 Potassium 4.3 Chloride 108 H Carbon Dioxide 24 Anion Gap 8 BUN 12 Creatinine 0.8 D Creat Clearance w eGFR > 60 Random Glucose 98 Calcium 8.5 Total Bilirubin 0.3 AST 11 L ALT 16 D Alkaline Phosphatase 113 D Total Protein 7.0 Albumin 3.7 RPR Titer Nonreactive HIV 1&2 Antibody Screen HIV P24 Antigen 04/01/18 07:15 WBC RBC Hgb Hct MCV MCH MCHC RDW Plt Count MPV Sodium Potassium Chloride Carbon Dioxide Anion Gap BUN Creatinine Creat Clearance w eGFR Random Glucose Calcium Total Bilirubin AST ALT Alkaline Phosphatase Total Protein Albumin RPR Titer HIV 1&2 Antibody Screen Negative HIV P24 Antigen Negative LABS NOTED PLAN; CONTINUE DETOX ZOFRAN SL DIRECTED INCREASE PO FLUIDS TOLERATED
--- NOTE | 2018-04-01 14:34 | EKG ---
Test Reason : Blood Pressure : / mmHG Vent. Rate : 062 BPM Atrial Rate : 062 BPM P-R Int : 172 ms QRS Dur : 088 ms QT Int : 406 ms P-R-T Axes : 046 063 061 degrees QTc Int : 412 ms NORMAL SINUS RHYTHM WITH SINUS ARRHYTHMIA NORMAL ECG WHEN COMPARED WITH ECG OF 29-JAN-2018 21:48, NO SIGNIFICANT CHANGE WAS FOUND Confirmed by MD Fer, Quinn ([id number]) on 04/01/2018 2:34:28 PM Referred By: Joseph Khan Confirmed By:Quinn Monroe MD
--- NOTE | 2018-04-01 14:50 | HP ---
Psychiatrist Admission - Data Vital Signs: Vital Signs - 24 hr 03/31/18 04/01/18 04/01/18 23:51 01:32 03:38 Temperature 98.9 F 98.0 F Pulse Rate 74 60 Respiratory 18 18 16 Rate Blood Pressure 118/75 105/65 04/01/18 04/01/18 04/01/18 06:39 09:34 13:19 Temperature 97.2 F L 97.8 F 98.1 F Pulse Rate 62 57 L 83 Respiratory 18 18 18 Rate Blood Pressure 102/56 98/60 97/59 Allergies/Adverse Reactions: Allergies Allergy/AdvReac Type Severity Reaction Status Date / Time No Known Allergies Allergy Verified 04/01/18 00:00 Psychiatric Findings - Problem List ([place] 1, 2,3) (1) Substance induced mood disorder Current Visit: Yes Status: Acute (2) Substance-induced sleep disorder Current Visit: Yes Status: Chronic (3) Nicotine dependence Current Visit: Yes Status: Chronic Qualifiers: Nicotine product type: cigarettes Substance use status: in withdrawal Qualified Code(s): F17.213 - Nicotine dependence, cigarettes, with withdrawal (4) Opioid dependence with withdrawal Current Visit: Yes Status: Acute (5) Cocaine dependence, uncomplicated Current Visit: No Status: Acute (6) History of fracture of left ankle Current Visit: Yes Status: Chronic Comment: in cast - followed by [facility] - [facility] 12/21/17 (7) Left leg DVT Current Visit: Yes Status: Resolved Qualifiers: (8) Crutches as ambulation aid Current Visit: No Status: Chronic
[2018-04-01] MEDS ORDERED: THIAMINE HCL 100 MG TABLET (FP) PO SCH (22:00)
[2018-04-01] MEDS ORDERED: MELATONIN 5 MG TABLETS PO PRN (22:00)
[2018-04-02] MEDS: diazePAM 5 MG TABLET PO PRN (06:38)
[2018-04-02] MEDS: PRENATAL VITAMINS W/ FOLIC ACID TABLET (FP) PO SCH (09:01)
[2018-04-02] MEDS: NICOTINE 21 MG/24 HOURS TOPICAL PATCH TD SCH (09:01)
[2018-04-02 09:56] VITALS: BP 96/56; PULSE 68; TEMP 98.3
[2018-04-02] MEDS ORDERED: METHADONE HCL 10 MG TABLET (FOR DETOX USE ONLY) PO ONE (10:00)
[2018-04-02] MEDS: APIXABAN 5 MG TABLET PO SCH (10:40)
--- NOTE | 2018-04-02 12:12 | PN ---
S Progress Note (SOAP) Subjective: SAW PT TODAY AT 9:00 WHO WAS LINGERING BY THE MEDICATION WINDOW AND WANTED HIS METHADONE AND INTERMITTENT RESTLESS SLEEP AT NIGHT. BOOKSTORE CLERK DISCUSSED WITH PT MEDICATION PROTOCOLS AND MANAGEMENT OF HIS WITHDRAWAL SX. DENIES OTHER UNRELATED DISOMFORTS TO DETOX. PT SIGNED OUT AMA STATING HE WANTS TO GO AND SEE HIS DOCTOR FOR HIS DVT. PT IS ALERT O X 3. REPORTED ANXIETY AND INSOMNIA AND DISCUSSED PSYCH FOLLOW UP THIS MORNING FOR INSOMNIA WITH DR MADDEN. PT LATER DECIDED TO LEAVE, DECLINING ALL MEDICAL MANAGEMENT HERE. Objective: 04/02/18 12:08 Laboratory Tests 04/01/18 04/01/18 04/01/18 07:15 07:15 07:15 WBC 8.1 RBC 4.27 Hgb 13.0 D Hct 38.4 MCV 90.0 MCH 30.6 MCHC 34.0 RDW 14.7 Plt Count 359 D MPV 7.9 Sodium 140 Potassium 4.3 Chloride 108 H Carbon Dioxide 24 Anion Gap 8 BUN 12 Creatinine 0.8 D Creat Clearance w eGFR > 60 Random Glucose 98 Calcium 8.5 Total Bilirubin 0.3 AST 11 L ALT 16 D Alkaline Phosphatase 113 D Total Protein 7.0 Albumin 3.7 RPR Titer Nonreactive HIV 1&2 Antibody Screen HIV P24 Antigen 04/01/18 07:15 WBC RBC Hgb Hct MCV MCH MCHC RDW Plt Count MPV Sodium Potassium Chloride Carbon Dioxide Anion Gap BUN Creatinine Creat Clearance w eGFR Random Glucose Calcium Total Bilirubin AST ALT Alkaline Phosphatase Total Protein Albumin RPR Titer HIV 1&2 Antibody Screen Negative HIV P24 Antigen Negative Assessment: 04/02/18 12:08 NAD Plan: PT SIGNED OUT AMA
--- NOTE | 2018-04-02 12:15 | DS ---
[facility] Detox Discharge Summary Admission Date: 03/31/18 Discharge Date: 04/02/18 - History Present History: Cocaine Dependence, Opioid Dependence Additional Comments: PT SIGNED OUT AMA. ALERT O X 3. NAD. Pertinent Past History: PLEASE SEE DX BELOW - Physical Exam Results Vital Signs: Vital Signs Temperature 98.3 F 04/02/18 09:54 Pulse Rate 68 04/02/18 09:54 Respiratory Rate 18 04/02/18 09:54 Blood Pressure 96/56 04/02/18 09:54 O2 Sat by Pulse Oximetry (%) Pertinent Admission Physical Exam Findings: WITHDRAWAL SX Laboratory Tests 04/01/18 04/01/18 04/01/18 07:15 07:15 07:15 WBC 8.1 RBC 4.27 Hgb 13.0 D Hct 38.4 MCV 90.0 MCH 30.6 MCHC 34.0 RDW 14.7 Plt Count 359 D MPV 7.9 Sodium 140 Potassium 4.3 Chloride 108 H Carbon Dioxide 24 Anion Gap 8 BUN 12 Creatinine 0.8 D Creat Clearance w eGFR > 60 Random Glucose 98 Calcium 8.5 Total Bilirubin 0.3 AST 11 L ALT 16 D Alkaline Phosphatase 113 D Total Protein 7.0 Albumin 3.7 RPR Titer Nonreactive HIV 1&2 Antibody Screen HIV P24 Antigen 04/01/18 07:15 WBC RBC Hgb Hct MCV MCH MCHC RDW Plt Count MPV Sodium Potassium Chloride Carbon Dioxide Anion Gap BUN Creatinine Creat Clearance w eGFR Random Glucose Calcium Total Bilirubin AST ALT Alkaline Phosphatase Total Protein Albumin RPR Titer HIV 1&2 Antibody Screen Negative HIV P24 Antigen Negative - Treatment Hospital Course: Discharged Condition Good - Medication Discharge Medications: Ambulatory Orders Buprenorphine/Naloxone [Suboxone 8Mg/2Mg Sl Film -] 1 each SL DAILY #7 film MDD 1 02/16/18 Apixaban [Eliquis] 1 tab PO BID 04/01/18 - Diagnosis (1) Nicotine dependence Status: Chronic Qualifiers: Nicotine product type: cigarettes Substance use status: in withdrawal Qualified Code(s): F17.213 - Nicotine dependence, cigarettes, with withdrawal (2) Opioid dependence with withdrawal Status: Acute (3) History of fracture of left ankle Status: Chronic (4) Left leg DVT Status: Resolved Qualifiers: (5) Cocaine dependence, uncomplicated Status: Acute (6) Hep C w/o coma, chronic Status: Chronic - AMA Did Patient Leave Against Medical Advice: Yes (ABDIRAHMAN)
[2018-04-03] MEDS ORDERED: METHADONE HCL 5 MG TABLET (FOR DETOX USE ONLY) PO ONE (10:00)
[2018-04-04] MEDS ORDERED: METHADONE HCL 5 MG TABLET (FOR DETOX USE ONLY) PO ONE (10:00)
[2018-04-05] MEDS ORDERED: METHADONE HCL 10 MG TABLET (FOR DETOX USE ONLY) PO ONE (10:00)
[2018-04-06] MEDS ORDERED: METHADONE HCL 5 MG TABLET (FOR DETOX USE ONLY) PO ONE (06:00)
== END 2018-04-02 11:24 | disposition left against medical advice (07) | DRG 770 ==
LOC: YASAS 23:34 → Y3N 23:54
PROVIDERS: ADMIT Internal Medicine; ATTEND Internal Medicine
PROC: HZ2ZZZZ Detoxification Services for Substance Abuse Treatment (ICD-10-PCS; principal; 2018-03-31)
DX: F11.23 Opioid dependence with withdrawal (principal); F14.20 Cocaine dependence, uncomplicated; F17.213 Nicotine dependence, cigarettes, with withdrawal; F19.282 Other psychoactive substance dependence with psychoactive substance-induced sleep disorder; F19.24 Other psychoactive substance dependence with psychoactive substance-induced mood disorder; I82.402 Acute embolism and thrombosis of unspecified deep veins of left lower extremity; Z79.01 Long term (current) use of anticoagulants; B18.2 Chronic viral hepatitis C; Z87.81 Personal history of (healed) traumatic fracture; R26.89 Other abnormalities of gait and mobility; Z99.89 Dependence on other enabling machines and devices
CPT/HCPCS: 36415; 80053; 85027; 86593; 87389; 93005; 93010

== ENCOUNTER 2022-06-25 10:54 | Inpatient (IN) | payer OTHER ==
[2022-06-25 12:03] VITALS: BMI 25.9
[2022-06-25] MEDS ORDERED: ONDANSETRON *ODT* 4 MG TABLET SL PRN (13:21)
[2022-06-25] MEDS ORDERED: MAGNESIUM HYDROX 2400MG/30ML ORAL SUSPENSION 30 ML CUP PO PRN (13:21)
[2022-06-25] MEDS ORDERED: DICYCLOMINE HCL 10 MG CAPSULE PO PRN (13:21)
[2022-06-25] MEDS ORDERED: LOPERAMIDE HCL 2 MG CAPSULE PO PRN (13:21)
[2022-06-25] MEDS ORDERED: MAG HYDROX/AL HYDROX/SIMETH 30 ML UNIT-DOSE CUP PO PRN (13:21)
[2022-06-25] MEDS ORDERED: ACETAMINOPHEN 325 MG TABLET (FP) PO PRN ×2 (13:21)
[2022-06-25] MEDS ORDERED: IBUPROFEN 400 MG TABLET (FP) PO PRN (13:21)
[2022-06-25] MEDS ORDERED: BENZOCAINE/MENTHOL (CHLORASEPTIC ) LOZENGE MM PRN (13:21)
[2022-06-25] MEDS ORDERED: NICOTINE 10 MG CARTRIDGE (INHALER) IH PRN (13:21)
[2022-06-25] MEDS ORDERED: MAGNESIUM CITRATE 300 ML BOTTLE PO PRN (13:21)
[2022-06-25] MEDS ORDERED: BISMUTH SUBSALICYLATE 524 MG/30 ML PO PRN (13:21)
[2022-06-25] MEDS: NICOTINE 21 MG/24 HOURS TOPICAL PATCH TD SCH (18:41)
[2022-06-25] MEDS ORDERED: MELATONIN 5 MG TABLETS PO SCH (22:00)
[2022-06-25] MEDS: THIAMINE HCL 100 MG TABLET (FP) PO SCH (23:34)
[2022-06-26] MEDS ORDERED: methaDONE HCL 10 MG TABLET (FOR DETOX USE ONLY) PO ONE ×2 (06:02→11:15)
[2022-06-26] MEDS ORDERED: cloNIDine HCL 0.1 MG TABLET PO PRN (06:02)
[2022-06-26 09:11] LABS: HEMATOCRIT 37.8 % (35.4-49); HEMOGLOBIN 12.7 GM/dL (11.7-16.9); MCH 28.3 pg (25.7-33.7); MCHC 33.6 g/dl (32.0-35.9); MEAN CELL VOLUME 84.2 fl (80-96); MEAN PLT VOLUME 7.8 fl (7.5-11.1); PLATELET COUNT 249 10^3/uL (134-434); RBC 4.49 M/mm3 (4.00-5.60); RDW 15.4 % (11.9-15.9); WHITE BLOOD COUNT 5.9 K/mm3 (4.0-10.0)
[2022-06-26 09:27] LABS: ALBUMIN 3.4 g/dl (3.4-5.0); BLOOD UREA NITROGEN 13.2 mg/dL (7-18); CALCIUM 8.8 mg/dL (8.5-10.1)
[2022-06-26 09:29] LABS: CREATININE 0.9 mg/dL (0.55-1.3)
[2022-06-26 09:30] LABS: BILIRUBIN,TOTAL 0.4 mg/dL (0.2-1); TOT PROT 7.7 g/dl (6.4-8.2)
[2022-06-26] MEDS: PRENATAL VITAMINS W/ FOLIC ACID TABLET (FP) PO SCH (11:00)
[2022-06-26] MEDS: NICOTINE 21 MG/24 HOURS TOPICAL PATCH TD SCH (11:17)
[2022-06-26] MEDS ORDERED: SUVOREXANT 10 MG TABLET PO PRN (22:00)
[2022-06-26] MEDS: THIAMINE HCL 100 MG TABLET (FP) PO SCH (23:37)
[2022-06-27] MEDS: hydrOXYzine PAMOATE 25 MG CAPSULE (FP) PO PRN (05:30)
[2022-06-27] MEDS: NICOTINE POLACRILEX 2 MG GUM BUC PRN ×3 (05:30→13:48)
[2022-06-27] MEDS: IBUPROFEN 600 MG TABLET (FP) PO PRN (05:31)
[2022-06-27] MEDS: METHOCARBAMOL 500 MG TABLET PO PRN (05:31)
[2022-06-27] MEDS ORDERED: methaDONE HCL 10 MG TABLET (FOR DETOX USE ONLY) ONE (09:03)
[2022-06-27] MEDS: NICOTINE 21 MG/24 HOURS TOPICAL PATCH TD SCH (10:15)
[2022-06-27] MEDS: PRENATAL VITAMINS W/ FOLIC ACID TABLET (FP) PO SCH (10:15)
[2022-06-27] MEDS: THIAMINE HCL 100 MG TABLET (FP) PO SCH (23:44)
[2022-06-28] MEDS ORDERED: methaDONE HCL 10 MG TABLET (FOR DETOX USE ONLY) PO ONE (10:00)
[2022-06-28] MEDS: NICOTINE 21 MG/24 HOURS TOPICAL PATCH TD SCH (10:06)
[2022-06-28] MEDS: METHOCARBAMOL 500 MG TABLET PO PRN (10:08)
[2022-06-28] MEDS: PRENATAL VITAMINS W/ FOLIC ACID TABLET (FP) PO SCH (10:09)
[2022-06-28] MEDS: NICOTINE POLACRILEX 2 MG GUM BUC PRN ×3 (10:11→22:29)
[2022-06-28] MEDS: IBUPROFEN 600 MG TABLET (FP) PO PRN (22:27)
[2022-06-29] MEDS: THIAMINE HCL 100 MG TABLET (FP) PO SCH (01:57)
[2022-06-29] MEDS: METHOCARBAMOL 500 MG TABLET PO PRN (08:51)
[2022-06-29] MEDS: hydrOXYzine PAMOATE 25 MG CAPSULE (FP) PO PRN (08:51)
[2022-06-29] MEDS: NICOTINE POLACRILEX 2 MG GUM BUC PRN (08:52)
[2022-06-29 09:05] VITALS: RESP 18
[2022-06-29] MEDS: PRENATAL VITAMINS W/ FOLIC ACID TABLET (FP) PO SCH (10:04)
[2022-06-29] MEDS: NICOTINE 21 MG/24 HOURS TOPICAL PATCH TD SCH (10:06)
[2022-06-29 13:25] VITALS: BP 122/65; PULSE 70; TEMP 98.4
[2022-06-30] MEDS ORDERED: methaDONE HCL 10 MG TABLET (FOR DETOX USE ONLY) PO ONE (10:00)
== END 2022-06-29 01:55 | disposition left against medical advice (07) | DRG 770 ==
LOC: YASAS 10:54 → Y6N 15:19
PROVIDERS: ADMIT Allergy & Immunology; ATTEND Surgery
PROC: HZ2ZZZZ Detoxification Services for Substance Abuse Treatment (ICD-10-PCS; principal; 2022-06-25)
DX: F11.23 Opioid dependence with withdrawal (principal); F14.20 Cocaine dependence, uncomplicated; F17.213 Nicotine dependence, cigarettes, with withdrawal; F19.24 Other psychoactive substance dependence with psychoactive substance-induced mood disorder; F19.282 Other psychoactive substance dependence with psychoactive substance-induced sleep disorder; B18.2 Chronic viral hepatitis C; Z86.718 Personal history of other venous thrombosis and embolism; Z56.0 Unemployment, unspecified; Z59.00 Homelessness unspecified
CPT/HCPCS: 36415; 80053; 85027; 86780; 87811; 93005; 93010; C9803-CS; Q0162; U0003; U0005